=== PATIENT | female | born 1940 | race Caucasian/White ===

== ENCOUNTER 2017-07-08 15:25 | Inpatient (IN) | payer MEDICARE ==
[~2017-07-08] VITALS: Ht 160 cm; Wt 91.7 kg
[~2017-07-08 15:25] MED LIST: B-COTAB41 PO; CALCTAB80 PO; CO Q100C9 PO; CRAN450T PO; CYMB30CA PO; ENOX40P SQ; GABA100C4 PO; GABA300C3 PO; HYDR-2768 PO; IRON325T2 PO; LACTATED RINGER'S 1000 ML INJ 1,000 ML IV ONE; LISI-360 PO; LORTA5 PO; OMEP20CA5 PO; ONDANSETRON HCL 4 MG/2 ML VIAL IV PUSH ONE; PHENYLEPH/NS 1000 MCG/10 ML SYR IV ONE; PROPOFOL 200 MG/20 ML AMP IV ONE; SIMV10TA PO; SYMB160A INH; ULTR50TA PO; VITA10002 PO; Z.0.COMMODE-3:1; Z.0.WALKERFRONT; [UNRECOGNIZED DRUG - OTHER] PO
[2017-07-08 15:27] VITALS: BP 135/58; PULSE 90; RESP 13; TEMP 100.3; O2SAT 97
[2017-07-08] MEDS ORDERED: PIPERACIL-TAZO 4.5 GM PREMIX 100 ML IV STA (15:50)
--- NOTE | 2017-07-08 15:59 | PD ---
HPI Chief Complaint: GI Complaint Time Seen by Provider: 15:50 Travel History International Travel<30 days: No Contact w/Intl Traveler<30days: No Traveled to known affect area: No History of Present Illness HPI 77-year-old female patient with history of ventral hernia from previous surgery , presents to the ER today because of one and half weeks history of lower abdominal pain where she feels a mass, thinks it is a hernia that started after she was lifting heavy stuff. She states is been getting worse and worse and she followed up with her primary care physician, had an ultrasound done on June 30 and then had a CAT scan done today, was told by her primary care physician to come here today. She has been running fevers but denies any nausea , vomiting, or any other symptoms. Modifying Factors: None Associated Signs & Symptoms: Lower abdominal area tenderness, fevers, mass Risk Factors: Elderly PFSH Past Medical History Arthritis: Yes Blood Disorders: No (cll) Depression: Yes Cancer: Yes (SKIN, CLL) Cardiovascular Problems: No High Cholesterol: Yes COPD: Yes Diabetes: No Endocrine: No GERD: Yes Genitourinary: No Hepatitis: No Hiatal Hernia: No Hypertension: Yes Immune Disorder: No Musculoskeletal: Yes (ARTHRITIS, BACK PAIN) Neurologic: No Psychiatric: Yes (DEPRESSION) Reproductive: No Respiratory: Yes (COPD) Thyroid Disease: No Menopausal: Yes Past Surgical History Abdominal Surgery: Yes (PANCREATIC BX) AICD: No Eye Surgery: Yes (HOSSEIN. CATARACT EXTRACT.) Joint Replacement: Yes (LEFT KNEE) Pacemaker: No Other Surgery: Yes (SKIN CA RESECTION) Social History Alcohol Use: Yes (8 drinks per week) Tobacco Use: No Substance Use: No Allergies-Medications (Allergen,Severity, Reaction): Coded Allergies: No Known Allergies (Verified , 10/10/14) Reported Meds & Prescriptions Reported Meds & Active Scripts Active Reported Co Q-10 (Coenzyme Q10 (Ubidecarenone)) 100 Mg Cap 100 Cap PO DAILY Potassium Chloride ER (Potassium Chloride) 10 Meq Cap 10 Meq PO DAILY Melatonin 5 Mg Tab 5 Mg PO HS Aspirin 81 Mg Chew 81 Mg PO ONCE Lasix (Furosemide) 40 Mg Tab 40 Mg PO DAILY Hydrocodone-Acetaminophen 5-325 mg Tab 1 Tab PO Q6H PRN Gabapentin 300 Mg Cap 300 Mg PO BID Claritin (Loratadine) 10 Mg Cap 10 Mg PO DAILY Escitalopram (Escitalopram Oxalate) 5 Mg Tab 5 Mg PO DAILY Duloxetine DR (Duloxetine HCl) 60 Mg Capdr 60 Mg PO DAILY Claritin (Loratadine) 10 Mg Cap 10 Mg PO DAILY Tramadol (Tramadol HCl) 50 Mg Tab 50 Mg PO Q8H PRN Meloxicam 7.5 Mg Tab 7.5 Mg PO DAILY Metoprolol Tartrate 50 Mg Tab 50 Mg PO BID Breo Ellipta Inh (Fluticasone/Vilanterol) 200-25 Mcg/Act Inh 1 Puff INH DAILY Use daily at the same time. Lexapro (Escitalopram Oxalate) 5 Mg Tab 5 Mg PO DAILY Symbicort Inh (Budesonide/Formoterol Fumarate) 160-4.5 Mcg/Act Aero 2 Puff INH Q12HR Cetirizine (Cetirizine HCl) 10 Mg Tab 10 Mg PO DAILY Lisinopril 5 Mg Tab 5 Mg PO DAILY Review of Systems Except as stated in HPI: all other systems reviewed are Neg Physical Exam Narrative GENERAL: Well-developed elderly white female patient currently mild distress. Awake and oriented 3. SKIN: Focused skin assessment warm/dry. HEAD: Atraumatic. Normocephalic. EYES: Pupils equal and round. No scleral icterus. No injection or drainage. ENT: No nasal bleeding or discharge. Mucous membranes pink and moist. NECK: Trachea midline. No JVD. CARDIOVASCULAR: Regular rate and rhythm. No murmur appreciated. RESPIRATORY: No accessory muscle use. Clear to auscultation. Breath sounds equal bilaterally. GASTROINTESTINAL: Abdomen soft, there is a grapefruit size palpable mass in the ventral line in the lower abdomen which is tender to palpation with surrounding erythema, nondistended. Hepatic and splenic margins not palpable. MUSCULOSKELETAL: No obvious deformities. No clubbing. No cyanosis. No edema. NEUROLOGICAL: Awake and alert. No obvious cranial nerve deficits. Motor grossly within normal limits. Normal speech. PSYCHIATRIC: Appropriate mood and affect; insight and judgment normal. Data Data Last Documented VS Vital Signs Date Time Temp Pulse Resp B/P (MAP) Pulse Ox O2 Delivery O2 Flow Rate FiO2 07/08/17 18:20 99.0 89 17 127/66 (86) 96 Room Air Orders Orders Complete Blood Count With Diff (07/08/17 15:50) Comprehensive Metabolic Panel (07/08/17 15:50) Lipase (07/08/17 15:50) Iv Access Insert/Monitor (07/08/17 15:50) Ecg Monitoring (07/08/17 15:50) Oximetry (07/08/17 15:50) Sodium Chloride 0.9% Flush (Ns Flush) (07/08/17 16:00) Lactic Acid Sepsis Protocol (07/08/17 15:50) Blood Culture (07/08/17 15:50) Piperacil-Tazo 4.5 Gm Premix (Zosyn 4.5 (07/08/17 15:50) Consult General Surgery (07/08/17 ) Admit Order (Ed Use Only) (07/08/17 18:21) Labs Laboratory Tests Test 07/08/17 15:59 07/08/17 16:00 Lactic Acid Level 0.7 mmol/L White Blood Count 34.9 TH/MM3 Red Blood Count 3.25 MIL/MM3 Hemoglobin 10.5 GM/DL Hematocrit 32.6 % Mean Corpuscular Volume 100.2 FL Mean Corpuscular Hemoglobin 32.3 PG Mean Corpuscular Hemoglobin Concent 32.2 % Red Cell Distribution Width 15.8 % Platelet Count 258 TH/MM3 Mean Platelet Volume 7.6 FL Neutrophils (%) (Auto) 31.0 % Lymphocytes (%) (Auto) 64.0 % Monocytes (%) (Auto) 4.5 % Eosinophils (%) (Auto) 0.2 % Basophils (%) (Auto) 0.3 % Neutrophils # (Auto) 10.8 TH/MM3 Lymphocytes # (Auto) 22.3 TH/MM3 Monocytes # (Auto) 1.6 TH/MM3 Eosinophils # (Auto) 0.1 TH/MM3 Basophils # (Auto) 0.1 TH/MM3 CBC Comment AUTO DIFF Differential Total Cells Counted 100 Neutrophils % (Manual) 32 % Band Neutrophils % 3 % Lymphocytes % 57 % Monocytes % 6 % Basophils % 2 % Neutrophils # (Manual) 12.2 TH/MM3 Differential Comment FINAL DIFF MANUAL Blastocytes % Smudge Cells PRESENT Platelet Estimate NORMAL Platelet Morphology Comment NORMAL Red Cell Morphology Comment NORMAL Blood Urea Nitrogen 13 MG/DL Creatinine 0.80 MG/DL Random Glucose 119 MG/DL Total Protein 6.2 GM/DL Albumin 2.8 GM/DL Calcium Level 8.1 MG/DL Alkaline Phosphatase 112 U/L Aspartate Amino Transf (AST/SGOT) 9 U/L Alanine Aminotransferase (ALT/SGPT) 15 U/L Total Bilirubin 0.5 MG/DL Sodium Level 133 MEQ/L Potassium Level 3.5 MEQ/L Chloride Level 96 MEQ/L Carbon Dioxide Level 29.6 MEQ/L Anion Gap 7 MEQ/L Estimat Glomerular Filtration Rate 70 ML/MIN Lipase 60 U/L [facility] Medical Decision Making Medical Screen Exam Complete: Yes Emergency Medical Condition: Yes Medical Record Reviewed: Yes Interpretation(s) Laboratory Tests Test 07/08/17 15:59 07/08/17 16:00 White Blood Count 34.9 TH/MM3 (4.0-11.0) Red Blood Count 3.25 MIL/MM3 (4.00-5.30) Hemoglobin 10.5 GM/DL (11.6-15.3) Hematocrit 32.6 % (35.0-46.0) Mean Corpuscular Volume 100.2 FL (80.0-100.0) Lymphocytes (%) (Auto) 64.0 % (9.0-44.0) Neutrophils # (Auto) 10.8 TH/MM3 (1.8-7.7) Lymphocytes # (Auto) 22.3 TH/MM3 (1.0-4.8) Monocytes # (Auto) 1.6 TH/MM3 (0-0.9) Random Glucose 119 MG/DL (74-106) Total Protein 6.2 GM/DL (6.4-8.2) Albumin 2.8 GM/DL (3.4-5.0) Calcium Level 8.1 MG/DL (8.5-10.1) Aspartate Amino Transf (AST/SGOT) 9 U/L (15-37) Sodium Level 133 MEQ/L (136-145) Chloride Level 96 MEQ/L (98-107) Estimat Glomerular Filtration Rate 70 ML/MIN (>89) Lipase 60 U/L (73-393) Differential Diagnosis Incarcerated hernia versus mass versus cellulitis versus abscess Narrative Course CAT scan [place] [facility] from today shows hernia defect containing fat and low-dose density collection containing bubbles of air which implies incarceration with superimposed infection of the hernia contents. On exam, she has abdominal wall cellulitis as well. IV antibiotics were given after cultures were drawn. Lab work shows significant leukocytosis although this may be related to her CLL. She is febrile in the ER. At this point, case was discussed with Dr. Coates who states he will see the patient. Case was then admitted to Dr. Humphrey. Diagnosis Primary Impression: Incarcerated hernia Additional Impression: Abdominal wall cellulitis Admitting Information Admitting Physician Requests: Admit Santhosh Govea MD Jul 08, 2017 15:59
[2017-07-08] MEDS ORDERED: SODIUM CHLORIDE 0.9% FLUSH 10 ML FLUSH IV FLUSH PRN ×2 (16:00→18:30)
[2017-07-08 16:01] VITALS: RESP 18; O2SAT 98
[2017-07-08 16:18] VITALS: BP 125/60; PULSE 89; RESP 18; TEMP 99.4; O2SAT 96
[2017-07-08 16:40] LABS: AUTOMATED NEUTROPHIL # 10.8 TH/MM3 (1.8-7.7); BASOPHIL # 0.1 TH/MM3 (0-0.2); BASOPHIL % 0.3 % (0.0-2.0); EOSINOPHIL # 0.1 TH/MM3 (0-0.4); EOSINOPHIL % 0.2 % (0.0-4.0); HEMATOCRIT 32.6 % (35.0-46.0); LYMPHOCYTE # 22.3 TH/MM3 (1.0-4.8); MEAN CELL VOLUME 100.2 FL (80.0-100.0); MEAN CORPUSCULAR HEMOGLOBIN 32.3 PG (27.0-34.0); MEAN CORPUSCULAR HGB CONC 32.2 % (32.0-36.0); MONO % 4.5 % (0.0-8.0); PLATELET COUNT 258 TH/MM3 (150-450); RED BLOOD COUNT 3.25 MIL/MM3 (4.00-5.30); RED CELL DISTRIBUTION WIDTH 15.8 % (11.6-17.2); WHITE BLOOD COUNT 34.9 TH/MM3 (4.0-11.0)
[2017-07-08 16:43] LABS: HEMO FLAGS AUTO DIFF
[2017-07-08] MEDS ORDERED: DULO1CAP3 PO (16:59)
[2017-07-08] MEDS ORDERED: LEXA5TAB PO (16:59)
[2017-07-08] MEDS ORDERED: GABA300C5 PO (16:59)
[2017-07-08] MEDS ORDERED: MELO7.5T4 PO (16:59)
[2017-07-08] MEDS ORDERED: FLUT1INH7 INH (16:59)
[2017-07-08] MEDS ORDERED: HYDR-3516 PO (16:59)
[2017-07-08] MEDS ORDERED: METO50TA PO (16:59)
[2017-07-08] MEDS ORDERED: POTA10CA PO (16:59)
[2017-07-08] MEDS ORDERED: ESCI5TAB PO (16:59)
[2017-07-08] MEDS ORDERED: TRAM50TA PO (16:59)
[2017-07-08] MEDS ORDERED: COEN1CAP PO (16:59)
[2017-07-08] MEDS ORDERED: CLAR10CA3 PO (16:59)
[2017-07-08] MEDS ORDERED: FURO1TAB60 PO (16:59)
[2017-07-08] MEDS ORDERED: LISI-519 PO (16:59)
[2017-07-08] MEDS ORDERED: SYMB160A INH (16:59)
[2017-07-08] MEDS ORDERED: ASPI81CH PO (16:59)
[2017-07-08] MEDS ORDERED: CETI10 PO (16:59)
[2017-07-08] MEDS ORDERED: MELA5TAB15 PO (16:59)
[2017-07-08 17:01] LABS: ALT (GPT) 15 U/L (10-53); ANION GAP 7 MEQ/L (5-15); AST (GOT) 9 U/L (15-37); BICARBONATE 29.6 MEQ/L (21.0-32.0); BLOOD UREA NITROGEN 13 MG/DL (7-18); CHLORIDE 96 MEQ/L (98-107); GLOMERULAR FILTRATION RATE 70 ML/MIN (>89); POTASSIUM 3.5 MEQ/L (3.5-5.1); SODIUM (NA) 133 MEQ/L (136-145)
[2017-07-08 17:03] LABS: ALKALINE PHOSPHATASE 112 U/L (45-117); TOTAL BILIRUBIN ADULT 0.5 MG/DL (0.2-1.0)
[2017-07-08 17:25] LABS: BANDS 3 % (0-6); BASOPHILS 2 % (0-2); NEUTROPHIL # MANUAL DIFF 12.2 TH/MM3 (1.8-7.7); PLATELET ESTIMATE SMEAR NORMAL (NORMAL); PLATELET MORPHOLOGY NORMAL (NORMAL); POLYS (SEG NEUTROPHILS) 32 % (16-70); SCAN/DIFF FINAL DIFF MANUAL; SMUDGE CELLS PRESENT PRESENT; WBC DIFF SAMPLE 100
[2017-07-08 18:20] VITALS: BP 127/66; PULSE 89; RESP 17; TEMP 99; O2SAT 96
[2017-07-08 18:30] VITALS: O2SAT 93
[2017-07-08] MEDS ORDERED: BISACODYL 10 MG SUPP RECTAL PRN (18:30)
[2017-07-08] MEDS ORDERED: ONDANSETRON HCL 4 MG/2 ML VIAL IVP PRN (18:30)
[2017-07-08] MEDS ORDERED: NALOXONE HCL 0.4 MG/ML AMP IV PUSH PRN (18:30)
[2017-07-08] MEDS ORDERED: LACTULOSE SYRUP 20 GM/30 ML CUP PO PRN (18:30)
[2017-07-08] MEDS ORDERED: MAGNESIUM HYDROXIDE SUSP 30 ML CUP PO PRN (18:30)
[2017-07-08] MEDS ORDERED: SENNOSIDES 8.6 MG TAB PO PRN (18:30)
[2017-07-08] MEDS ORDERED: ACETAMINOPHEN 325 MG TAB PO PRN (18:30)
[2017-07-08] MEDS: SODIUM CHLOR 0.9% 1000 ML INJ 1,000 ML IV SCH (19:26)
[2017-07-08] MEDS: SODIUM CHLORIDE 0.9% FLUSH 10 ML FLUSH IV FLUSH SCH (20:56)
[2017-07-08] MEDS: DOCUSATE SODIUM 50 MG/SENNA 8.6 MG TAB PO SCH (20:56)
[2017-07-08 21:18] VITALS: BP 163/69; PULSE 72; RESP 20
[2017-07-08] MEDS ORDERED: LIDOCAINE HCL 1% 50 ML VIAL ONE (23:43)
[2017-07-08] MEDS ORDERED: BUPIVACAINE HCL PF 0.25% 30 ML VIAL ONE (23:43)
[2017-07-09] MEDS ORDERED: PIPERACIL-TAZO 4.5 GM PREMIX 100 ML IV SCH
[2017-07-09] MEDS ORDERED: SUGAMMADEX SODIUM 200 MG/2 ML VIAL IV PUSH ONE ×4 (00:42→01:13)
[2017-07-09] MEDS ORDERED: ACETAMINOPHEN 1000 MG/100 ML 100 ML IV ONE (00:52)
[2017-07-09] MEDS ORDERED: DO NOT ADM ANY ANTICOAGULANT DRUGS PRN (01:30)
[2017-07-09] MEDS: *morphine SULFATE 8 MG/ML PERIprocedure ONLY ONE ×2 (01:43→01:44)
[2017-07-09] MEDS: SODIUM CHLOR 0.9% 1000 ML INJ 1,000 ML IV SCH (03:39)
[2017-07-09 04:39] VITALS: BP 119/58; PULSE 88; RESP 18; TEMP 98.1; O2SAT 92
--- NOTE | 2017-07-09 05:29 | HHI.HP ---
[facility] Service [place] Primary Care Physician Lee Wilks Admission Diagnosis sepsis/incarcerated hernia/abdominal wall cellulitis Diagnoses: Travel History International Travel<30 Days: No Contact w/Intl Traveler <30 Da: No Traveled to Known Affected Are: No History of Present Illness History from patient, ER physician notes, and review of medical records. Patient reported that she came to the hospital initially because she was having abdominal pain diffusely for the past 1-1/2 weeks. Denies any nausea or vomiting. She reports of fever. Also noted to be coughing. Productive cough but she was not able to expectorate. She states that her abdomen was also feeling swollen and inflamed. Denies any constipation or diarrhea. Denies any black color stool or red color stool. Denies burning or pain on urination or frequent urination. Apart from the above, patient denies any recent chest pain/palpitations/ shortness of breath/focal weakness. Denies any syncopal episodes/dizziness. Review of Systems Except as stated in HPI: all other systems reviewed are Neg Past Family Social History Past Medical History htn copd cll Past Surgical History bilateral knee replacement endoscopic biopsies Allergies: Coded Allergies: No Known Allergies (Verified , 10/10/14) Family History none that she knows of Social History quit smoking 1997 drink about 2 drinks - 3 drinks a day; mixed drink no drugs still driving lives on her own Physical Exam Vital Signs Vital Signs Date Time Temp Pulse Resp B/P (MAP) Pulse Ox O2 Delivery O2 Flow Rate FiO2 07/09/17 04:39 98.1 88 18 119/58 (78) 92 07/09/17 02:00 98.8 89 24 122/56 (78) 93 Nasal Cannula 4 07/09/17 01:45 88 24 111/50 (70) 97 Nasal Cannula 4 07/09/17 01:30 91 22 127/59 (81) 97 Simple Mask 10 07/09/17 01:23 99.2 91 22 118/57 (77) 91 Simple Mask 10 07/08/17 21:18 72 20 163/69 (100) 9/14/17 18:30 93 21 07/08/17 18:20 99.0 89 17 127/66 (86) 96 Room Air 07/08/17 16:18 99.4 89 18 125/60 (81) 96 Room Air 07/08/17 16:02 18 07/08/17 16:01 18 98 Room Air 07/08/17 15:27 100.3 90 13 135/58 (83) 97 Physical Exam GENERAL: This is a well-nourished, well-developed patient, in no apparent distress. SKIN: No rashes, ecchymoses or lesions. Cool and dry. HEAD: Atraumatic. Normocephalic. No temporal or scalp tenderness. EYES:. No scleral icterus. No injection or drainage. ENT: Nose without bleeding, purulent drainage or septal hematoma. Airway patent. NECK: Trachea midline. No JVD CARDIOVASCULAR: Regular rate and rhythm without murmurs, gallops, or rubs. RESPIRATORY: Clear to auscultation. Breath sounds equal bilaterally. No wheezes , rales, or rhonchi. GASTROINTESTINAL: Abdomen soft, non-tender, nondistended.. No guarding. MUSCULOSKELETAL: Extremities without clubbing, cyanosis, or edema. . No calf tenderness. NEUROLOGICAL: Awake and alert.Motor and sensory grossly within normal limits.Normal speech. Laboratory Laboratory Tests Test 07/08/17 15:59 07/08/17 16:00 Lactic Acid Level 0.7 White Blood Count 34.9 Red Blood Count 3.25 Hemoglobin 10.5 Hematocrit 32.6 Mean Corpuscular Volume 100.2 Mean Corpuscular Hemoglobin 32.3 Mean Corpuscular Hemoglobin Concent 32.2 Red Cell Distribution Width 15.8 Platelet Count 258 Mean Platelet Volume 7.6 Neutrophils (%) (Auto) 31.0 Lymphocytes (%) (Auto) 64.0 Monocytes (%) (Auto) 4.5 Eosinophils (%) (Auto) 0.2 Basophils (%) (Auto) 0.3 Neutrophils # (Auto) 10.8 Lymphocytes # (Auto) 22.3 Monocytes # (Auto) 1.6 Eosinophils # (Auto) 0.1 Basophils # (Auto) 0.1 CBC Comment AUTO DIFF Differential Total Cells Counted 100 Neutrophils % (Manual) 32 Band Neutrophils % 3 Lymphocytes % 57 Monocytes % 6 Basophils % 2 Neutrophils # (Manual) 12.2 Differential Comment FINAL DIFF MANUAL Blastocytes Smudge Cells PRESENT Platelet Estimate NORMAL Platelet Morphology Comment NORMAL Red Cell Morphology Comment NORMAL Blood Urea Nitrogen 13 Creatinine 0.80 Random Glucose 119 Total Protein 6.2 Albumin 2.8 Calcium Level 8.1 Alkaline Phosphatase 112 Aspartate Amino Transf (AST/SGOT) 9 Alanine Aminotransferase (ALT/SGPT) 15 Total Bilirubin 0.5 Sodium Level 133 Potassium Level 3.5 Chloride Level 96 Carbon Dioxide Level 29.6 Anion Gap 7 Estimat Glomerular Filtration Rate 70 Lipase 60 Date/Time Source Procedure Growth Status 07/08/17 16:05 Blood Peripheral Aerobic Blood Culture Pending Received 07/08/17 16:05 Blood Peripheral Anaerobic Blood Culture Pending Received Result Diagram: 07/08/17 1600 07/08/17 1600 Caprini VTE Risk Assessment Caprini VTE Risk Assessment: Mod/High Risk (score >= 2) Caprini Risk Assessment Model Point Value = 1 Point Value = 2 Point Value = 3 Point Value = 5 Age 41-60 Minor surgery BMI > 25 kg/m2 Swollen legs Varicose veins or History of unexplained or recurrent spontaneous Oral contraceptives or hormone replacement Sepsis (< 1 month) Serious lung disease, including pneumonia (< 1 month) Abnormal pulmonary function Acute myocardial infarction Congestive heart failure (< 1 month) History of inflammatory bowel disease Medical patient at bed rest Age 61-74 Arthroscopic surgery Major open surgery (> 45 min) Laparoscopic surgery (> 45 min) Malignancy Confined to bed (> 72 hours) Immobilizing plaster cast Central venous access Age >= 75 History of VTE Family history of VTE Factor V Leiden Prothrombin [id number] Lupus anticoagulant Anticardiolipin antibodies Elevated serum homocysteine Heparin-induced thrombocytopenia Other congenital or acquired thrombophilia Stroke (< 1 month) Elective arthroplasty Hip, pelvis, or leg fracture Acute spinal cord injury (< 1 month) Prophylaxis Regimen Total Risk Factor Score Risk Level Prophylaxis Regimen 0-1 Low Early ambulation 2 Moderate Order ONE of the following: *Sequential Compression Device (SCD) *Heparin 5000 units SQ BID 3-4 Higher Order ONE of the following medications: *Heparin 5000 units SQ TID *Enoxaparin/Lovenox 40 mg SQ daily (WT < 150 kg, CrCl > 30 mL/min) *Enoxaparin/Lovenox 30 mg SQ daily (WT < 150 kg, CrCl > 10-29 mL/min) *Enoxaparin/Lovenox 30 mg SQ BID (WT < 150 kg, CrCl > 30 mL/min) AND/OR *Sequential Compression Device (SCD) 5 or more Highest Order ONE of the following medications: *Heparin 5000 units SQ TID (Preferred with Epidurals) *Enoxaparin/Lovenox 40 mg SQ daily (WT < 150 kg, CrCl > 30 mL/min) *Enoxaparin/Lovenox 30 mg SQ daily (WT < 150 kg, CrCl > 10-29 mL/min) *Enoxaparin/Lovenox 30 mg SQ BID (WT < 150 kg, CrCl > 30 mL/min) AND *Sequential Compression Device (SCD) Assessment and Plan Assessment and Plan Impression: Incarcerated hernia Fevers/diaphoresis - rule out bacteremia CLL COPD Plan: Patient was evaluated by general surgery and was taken to the OR overnight. Patient's abdomen and pelvis CTpersonally reviewed. Postoperatively, patient is doing well with the wound VAC. Fever workup. Blood cultures were sent. Pending results. Send UA and urine culture if indicated. Chest x-ray stat. Start patient on levofloxacin 750 mg IV every 24 hours, with Flagyl 500 mg IV every 6 hours. Patient also received Zosyn 4.5 g IV previously in ER. Pain control. Resume home meds DVT prophylaxiswith Lovenox. GI prophylaxis on pantoprazole. Discussed Condition With patient, ER physician, nursing staff Physician Certification 2 Midnight Certification Type: Admission for Inpatient Services Order for Inpatient Services The services are ordered in accordance with Medicare regulations or non- Medicare payer requirements, as applicable. In the case of services not specified as inpatient-only, they are appropriately provided as inpatient services in accordance with the 2-midnight benchmark. Estimated LOS (days): 2 days is the estimated time the patient will need to remain in the hospital, assuming treatment plan goals are met and no additional complications. Post-Hospital Plan: Home Nia Love MD Jul 09, 2017 05:29
[2017-07-09] MEDS: LEVOFLOXACIN 750 MG PREMIX INJ 150 ML IV SCH (06:51)
--- NOTE | 2017-07-09 07:08 | RADRPT ---
EXAM DATE/TIME: 07/09/2017 06:38 [place] COMPARISON: CHEST PA & LAT, September 14, 2014, 11:56. INDICATIONS : Shortness of breath. MEDICAL HISTORY : None. SURGICAL HISTORY : None. ENCOUNTER: Initial ACUITY: 1 day PAIN SCORE: 0/10 LOCATION: chest FINDINGS: A single view of the chest demonstrates the lungs to be symmetrically aerated without evidence of mas s, infiltrate or effusion. The cardiomediastinal contours are unremarkable. Osseous structures are intact. CONCLUSION: No acute disease. Rohan Andrade MD on July 09, 2017 at 7:07 Board Certified Radiologist. This report was verified electronically.
[2017-07-09 08:16] VITALS: BP 124/58; PULSE 74; RESP 18; TEMP 97.3; O2SAT 95
[2017-07-09 09:00] LABS: BLOOD, URINE NEG (NEG); COMMENT (UR) CULT NOT INDICATED; CULTURE IF INDICATED CULT NOT INDICATED; GLUCOSE,URINE NEG (NEG); KETONE, URINE NEG (NEG); MUCUS URINE FEW /lpf (OCC); NITRITE,URINE NEG (NEG); PH, URINE 5.5 (5.0-8.5); SQUAMOUS EPITHELIAL CELL URINE <1 /hpf (0-5); URINE COLOR YELLOW (YELLW/STRAW)
[2017-07-09] MEDS: ESCITALOPRAM OXALATE 10 MG TAB PO SCH (09:39)
[2017-07-09] MEDS: DULoxetine HCl DR 60 MG CAP PO SCH (09:40)
[2017-07-09] MEDS: PANTOPRAZOLE SOD 40 MG DELAYED RELEASE TAB PO SCH (09:40)
[2017-07-09] MEDS: LISINOPRIL 5 MG TAB PO SCH (09:40)
[2017-07-09] MEDS: GABAPENTIN 300 MG CAP PO SCH ×2 (09:40→21:15)
[2017-07-09] MEDS: METOPROLOL TARTRATE 50 MG TAB PO SCH ×2 (09:40→21:16)
[2017-07-09] MEDS: FUROSEMIDE 40 MG TAB PO SCH (09:41)
[2017-07-09] MEDS: BUDESONIDE-FORMOTEROL 160/4.5 MCG INHALER INH SCH ×2 (09:41→21:00)
[2017-07-09] MEDS: metroNIDAZOLE 500 MG INJ 100 ML IV SCH ×3 (09:41→21:16)
[2017-07-09] MEDS: ASPIRIN 81 MG CHEW TAB PO SCH (09:42)
[2017-07-09] MEDS: POTASSIUM CHLORIDE 10 MEQ CAP PO SCH (09:42)
[2017-07-09] MEDS: SODIUM CHLORIDE 0.9% FLUSH 10 ML FLUSH IV FLUSH SCH ×2 (09:42→21:16)
[2017-07-09] MEDS: ENOXAPARIN SODIUM 40 MG/0.4 ML SYRINGE SQ SCH (09:43)
[2017-07-09] MEDS: DOCUSATE SODIUM 50 MG/SENNA 8.6 MG TAB PO SCH ×2 (09:43→21:16)
[2017-07-09 10:20] LABS: AUTOMATED NEUTROPHIL # 11.7 TH/MM3 (1.8-7.7); BASOPHIL % 0.1 % (0.0-2.0); HEMATOCRIT 32.8 % (35.0-46.0); LYMPHOCYTE # 18.5 TH/MM3 (1.0-4.8); MEAN CELL VOLUME 101.2 FL (80.0-100.0); MEAN CORPUSCULAR HEMOGLOBIN 32.3 PG (27.0-34.0); MEAN CORPUSCULAR HGB CONC 31.9 % (32.0-36.0); NEUT % 37.9 % (16.0-70.0); PLATELET COUNT 240 TH/MM3 (150-450); RED BLOOD COUNT 3.24 MIL/MM3 (4.00-5.30); RED CELL DISTRIBUTION WIDTH 15.8 % (11.6-17.2); WHITE BLOOD COUNT 30.8 TH/MM3 (4.0-11.0)
--- NOTE | 2017-07-09 10:21 | MB ---
cc: PATRICIA KELLY M.D. DATE OF CONSULTATION 07/08/2017 REASON FOR CONSULTATION Incarcerated ventral incisional hernia with abscess. BRIEF HISTORY This is a very pleasant 77-year-old woman who back in 1996 underwent exploration for possible pancreatic cancer by Dr. Whitney who is no longer here in town. Went to [place] shortly after her surgery. She did not have pancreatic cancer and recovered well. A few weeks ago, she lifted something heavy and felt a pop and a lump appeared. She did okay with that until over the last couple of days she developed increasing discomfort and erythema. She is followed by Dr. Garcia for CLL and her normal white blood cell count is in the upper 20s to low 30s. She has had no nausea, vomiting, change in bowel or bladder habits. PAST MEDICAL HISTORY Her past medical history includes: 1. Some CHF. 2. She has had a history of depression. 3. Skin cancer 4. High cholesterol 5. COPD, is a former smoker. 6. She has had arthritis. 7. Some gastroesophageal reflux disease PAST SURGICAL HISTORY Previous surgeries include: 1. The pancreatic biopsy. 2. Cataract surgery 3. Left knee surgery 4. Skin cancer excisions MEDICATIONS Her routine medications include: 1. Coenzyme Q-10 2. Potassium 3. Melatonin 4. 81 mg aspirin 5. Lasix 40 mg 6. Hydrocodone 7. Gabapentin 8. Claritin 9. Escitalopram 10. Duloxetine 11. Claritin 12. Tramadol 13. Meloxicam 14. Metoprolol 15. Breo Ellipta inhaler 16. Lexapro 17. Symbicort inhaler 18. Cetirizine 19. Lisinopril SOCIAL HISTORY Her daughter lives here locally, knows what is going on. She does not smoke anymore. She has two alcoholic beverages a day. She denies HIV or hepatitis risk factors. FAMILY HISTORY Her brother of cancer from working in the plants in [place], [place]. Her father of brain cancer. REVIEW OF SYSTEMS She has chronic lung disease. She has some CHF. She gets swollen ankles. She denies known liver or kidney problems. She has no history of strokes or seizures. She has never been treated with blood thinning medications. PHYSICAL EXAM She is an obese woman who is very pleasant and cooperative with the exam. She is in no acute distress. VITAL SIGNS: Her vital signs include a temperature of 99, pulse 89, respiratory rate 17, blood pressure 127/66, O2 sat 93%. HEENT: She is normocephalic, atraumatic. Her pupils are 2, round, sluggishly reactive to light. They are equal. Oropharynx, she has upper and lower partial denture plates. No oral mucosal lesions are obvious. NECK: Her neck is supple without adenopathy. She has midline trachea. No jugular venous distension. LUNGS: Lungs are clear and equal anteriorly bilaterally. HEART: Heart sounds are regular without obvious murmur, rub or gallop. BREASTS, GENITAL AND RECTAL: Exams were deferred. ABDOMEN: Obese. She has upper midline incisional scar that is well-healed. She has an erythematous area with the palpable lump above the umbilicus about 8 cm in diameter. The erythema extends laterally a good 10 cm in either direction. She has no obvious umbilical hernia defect. EXTREMITIES: Her extremities show signs of chronic swelling, chronic sun exposure, she has equal radial pulses. She has strong bilateral nurse orthopedic strength. NEUROLOGIC: Otherwise awake, alert and oriented. LABS Show a white count of 34.9 with 64% lymphs. Her hemoglobin is 10.5, her platelet count is 258. Chemistry showed a potassium of 3.5, creatinine 0.8, glucose 119, albumin of 2.8, lipase is 60. She had outpatient imaging from [place] which showed the inflammation in the supraumbilical position and a likely tiny supraumbilical incisional hernia defect. There is inflammatory changes concerning for abscess. ASSESSMENT This is a 77-year-old woman with a prior history of exploratory lap for presumed pancreatic cancer which was benign in 1996. Three weeks ago she apparently developed a supraumbilical bulge consistent with hernia. The last 48-72 hours it has become erythematous and tender. I have recommended incision and drainage, debridement of the infected area, suture closure of any hernia defect identified and Vac dressing placement. The procedure in detail plus risks of bleeding, infection, recurrence of the hernia expectations for several weeks to several months of wound healing. She understands. She wished to proceed. She has received intravenous antibiotics. MD KIARA Mcgraw/TODD /8:38 PM /10:10 AM
[2017-07-09 10:27] LABS: BICARBONATE 28.2 MEQ/L (21.0-32.0); POTASSIUM 3.6 MEQ/L (3.5-5.1)
[2017-07-09 10:34] LABS: HEMO FLAGS AUTO DIFF
--- NOTE | 2017-07-09 11:39 | HHI.PR ---
Subjective Remarks Follow-up for abdominal wall abscess, repair of incarcerated hernia. Patient is currently doing well. Pain is well controlled, no fever or chills. Daughter is at bedside. Objective Vitals Vital Signs Date Time Temp Pulse Resp B/P (MAP) Pulse Ox O2 Delivery O2 Flow Rate FiO2 07/09/17 08:16 97.3 74 18 124/58 (80) 95 07/09/17 04:39 98.1 88 18 119/58 (78) 92 07/09/17 02:00 98.8 89 24 122/56 (78) 93 Nasal Cannula 4 07/09/17 01:45 88 24 111/50 (70) 97 Nasal Cannula 4 07/09/17 01:30 91 22 127/59 (81) 97 Simple Mask 10 07/09/17 01:23 99.2 91 22 118/57 (77) 91 Simple Mask 10 07/08/17 21:18 72 20 163/69 (100) 07/08/17 18:30 93 21 07/08/17 18:20 99.0 89 17 127/66 (86) 96 Room Air 07/08/17 16:18 99.4 89 18 125/60 (81) 96 Room Air 07/08/17 16:02 18 07/08/17 16:01 18 98 Room Air 07/08/17 15:27 100.3 90 13 135/58 (83) 97 I/O 07/08/17 07/08/17 07/08/17 07/09/17 07/09/17 07/09/17 07:00 15:00 23:00 07:00 15:00 23:00 Intake Total 100 ml 600 ml Output Total 10 ml Balance 100 ml 590 ml Intake Oral 0 ml IV Total 100 ml 600 ml Output Urine Total 0 ml Estimated Blood Loss 10 ml # Voids 2 Result Diagram: 07/09/17 0849 07/09/17 0849 Imaging Last Impressions Chest X-Ray 07/09/17 0000 Signed Impressions: Service Date/Time: Sunday, July 09, 2017 06:38 - CONCLUSION: No acute disease. Rohan Andrade MD Objective Remarks GENERAL: Alert, oriented 3, NAD. SKIN: Warm and dry. HEAD: Normocephalic. EYES: No scleral icterus. No injection or drainage. NECK: Supple, trachea midline. No JVD or lymphadenopathy. CARDIOVASCULAR: Regular rate and rhythm without murmurs, gallops, or rubs. RESPIRATORY: Breath sounds equal bilaterally. No accessory muscle use. GASTROINTESTINAL: Abdomen soft, non-tender, nondistended. Status post surgical intervention. Wound VAC in place. There is mild erythema around the wound VAC insertion site. MUSCULOSKELETAL: No cyanosis, or edema. BACK: Nontender without obvious deformity. No CVA tenderness. Procedures I&D abdominal wall abscess, repair incarcerated hernia, wound VAC placement. A/P Problem List: (1) Hypertension ICD Code: I10 - Essential (primary) hypertension (2) COPD (chronic obstructive pulmonary disease) ICD Code: J44.9 - Chronic obstructive pulmonary disease, unspecified (3) Abdominal wall abscess ICD Code: L02.211 - Cutaneous abscess of abdominal wall (4) Incarcerated hernia ICD Code: K46.0 - Unspecified abdominal hernia with obstruction, without gangrene Status: Acute Assessment and Plan Ms. Lima is a pleasant 77-year-old female who presented to the emergency department due to abdominal pain. Gen. surgery evaluated patient and performed I&D of the abdominal wall abscess as well as repaired incarcerated hernia. - Abdominal wall abscess - Incarcerated abdominal hernia - Continue [place], acetaminophen for pain. - IV Levaquin and Flagyl until we get wound culture results. - Blood cultures negative so far. - General surgery plans to change wound dressing on Wednesday and patient can potentially be discharged afterwards. - COPD - Hypertension - Anxiety/Depression - Continue DuoNeb when necessary, Symbicort, Lexapro, Cymbalta. - Continue metoprolol 50 mg twice a day, lisinopril 5 mg daily. - GERD - continue Protonix 40 mg daily. Full code. Lovenox. Nikki Humphrey DO Jul 09, 2017 11:39 am
--- NOTE | 2017-07-09 11:45 | HHI.PR ---
Subjective Subjective Notes feels better. daughter at bedside. Objective Vitals/I&O Vital Signs Date Time Temp Pulse Resp B/P (MAP) Pulse Ox O2 Delivery O2 Flow Rate FiO2 07/09/17 08:16 97.3 74 18 124/58 (80) 95 07/09/17 02:00 Nasal Cannula 4 07/08/17 18:30 21 Labs Laboratory Tests Test 07/08/17 15:59 07/08/17 16:00 07/09/17 08:35 07/09/17 08:49 Lactic Acid Level 0.7 White Blood Count 34.9 30.8 Red Blood Count 3.25 3.24 Hemoglobin 10.5 10.4 Hematocrit 32.6 32.8 Mean Corpuscular Volume 100.2 101.2 Mean Corpuscular Hemoglobin 32.3 32.3 Mean Corpuscular Hemoglobin Concent 32.2 31.9 Red Cell Distribution Width 15.8 15.8 Platelet Count 258 240 Mean Platelet Volume 7.6 7.6 Neutrophils (%) (Auto) 31.0 37.9 Lymphocytes (%) (Auto) 64.0 60.0 Monocytes (%) (Auto) 4.5 2.0 Eosinophils (%) (Auto) 0.2 0.0 Basophils (%) (Auto) 0.3 0.1 Neutrophils # (Auto) 10.8 11.7 Lymphocytes # (Auto) 22.3 18.5 Monocytes # (Auto) 1.6 0.6 Eosinophils # (Auto) 0.1 0.0 Basophils # (Auto) 0.1 0.0 CBC Comment AUTO DIFF AUTO DIFF Differential Total Cells Counted 100 Neutrophils % (Manual) 32 Band Neutrophils % 3 Lymphocytes % 57 Monocytes % 6 Basophils % 2 Neutrophils # (Manual) 12.2 Differential Comment FINAL DIFF MANUAL Blastocytes Smudge Cells PRESENT Platelet Estimate NORMAL Platelet Morphology Comment NORMAL Red Cell Morphology Comment NORMAL Blood Urea Nitrogen 13 12 Creatinine 0.80 0.69 Random Glucose 119 157 Total Protein 6.2 Albumin 2.8 Calcium Level 8.1 8.1 Alkaline Phosphatase 112 Aspartate Amino Transf (AST/SGOT) 9 Alanine Aminotransferase (ALT/SGPT) 15 Total Bilirubin 0.5 Sodium Level 133 136 Potassium Level 3.5 3.6 Chloride Level 96 97 Carbon Dioxide Level 29.6 28.2 Anion Gap 7 11 Estimat Glomerular Filtration Rate 70 83 Lipase 60 Urine Color YELLOW Urine Turbidity CLEAR Urine pH 5.5 Urine Specific [place] 1.012 Urine Protein NEG Urine Glucose (UA) NEG Urine Ketones NEG Urine Occult Blood NEG Urine Nitrite NEG Urine Bilirubin NEG Urine Urobilinogen LESS THAN 2.0 Urine Leukocyte Esterase NEG Urine WBC LESS THAN 1 Urine Squamous Epithelial Cells <1 Urine Mucus FEW Microscopic Urinalysis Comment CULT NOT INDICATED Date/Time Source Procedure Growth Status 07/08/17 16:05 Blood Peripheral Aerobic Blood Culture - Preliminary NO GROWTH IN 1 DAY Resulted 07/08/17 16:05 Blood Peripheral Anaerobic Blood Culture - Preliminary NO GROWTH IN 1 DAY Resulted 07/09/17 00:45 Abscess Other Gram Stain - Final Resulted 07/09/17 00:45 Abscess Other Wound Culture Pending Resulted Abdomen: Non-distended, Non-tender, Other (VAC intact, erythema decreased.) A/P Assessment and Plan Postop I and D abdominal wall abscess, repair incarcerated hernia, VAC. D/W hospitalist, patient and daughter. Plan first VAC change Wednesday, should have ID on bacteria, can focus antibiotic, arrange for [facility] VAC changes M W F, follow up with me in 2 weeks. Everyone agreed to plan. Regular meds, diet, activity, OK for lovenox. Ned Coates MD Jul 09, 2017 11:45
[2017-07-09 12:16] VITALS: BP 118/59; PULSE 67; RESP 18; TEMP 97.5; O2SAT 95
--- NOTE | 2017-07-09 12:28 | HHI.FF ---
Face to Face Verification Diagnosis: (1) Abdominal wall cellulitis Home Health Nursing Order: Wound care and dressing changes Instructions: Wound Vac change---MWF--- to start Jul 14 as first Wound Vac change I have seen patient Jesi Lima on 07/09/17. My clinical findings support the need for the requested home health care services because: Limited ability to care for self High risk of falls I certify that my clinical findings support that this patient is homebound because: Unsteady gait/balance Padmaja Lema Jul 09, 2017 12:28
[2017-07-09 16:27] VITALS: BP 109/51; PULSE 74; RESP 18; TEMP 97.7; O2SAT 95
[2017-07-09 20:00] VITALS: BP 134/63; PULSE 77; RESP 18; TEMP 97.3; O2SAT 99
[2017-07-09 20:16] LABS: BANDS 4 % (0-6); NEUTROPHIL # MANUAL DIFF 12.9 TH/MM3 (1.8-7.7); POLYS (SEG NEUTROPHILS) 38 % (16-70); WBC DIFF SAMPLE 100
[2017-07-09 20:17] LABS: PLATELET ESTIMATE SMEAR NORMAL (NORMAL); PLATELET MORPHOLOGY NORMAL (NORMAL); SCAN/DIFF FINAL DIFF MANUAL
[2017-07-09] MEDS: MELATONIN 5 MG TAB PO SCH (21:16)
[2017-07-10] VITALS (7 sets, daily range): BP systolic 109–151; BP diastolic 55–67; PULSE 64–80; RESP 17–18; TEMP 97.3–98.5; O2SAT 92–99
[2017-07-10] MEDS: metroNIDAZOLE 500 MG INJ 100 ML IV SCH ×4 (03:32→23:28)
[2017-07-10] MEDS: LEVOFLOXACIN 750 MG PREMIX INJ 150 ML IV SCH (05:00)
--- NOTE | 2017-07-10 09:12 | HHI.PR ---
Subjective Remarks Follow-up for abdominal wall abscess, repair of incarcerated hernia. Patient is doing well. Ambulating using her walker. No fever, chills. Objective Vitals Vital Signs Date Time Temp Pulse Resp B/P (MAP) Pulse Ox O2 Delivery O2 Flow Rate FiO2 07/10/17 08:00 98.5 69 18 138/67 (90) 92 07/10/17 04:00 97.3 64 18 151/64 (93) 95 07/10/17 00:00 97.4 72 18 132/64 (86) 99 07/09/17 20:00 97.3 77 18 134/63 (86) 99 07/09/17 16:27 97.7 74 18 109/51 (70) 95 07/09/17 12:16 97.5 67 18 118/59 (78) 95 I/O 07/09/17 07/09/17 07/09/17 07/10/17 07/10/17 07/10/17 07:00 15:00 23:00 07:00 15:00 23:00 Intake Total 600 ml 100 ml 340 ml 100 ml Output Total 10 ml Balance 590 ml 100 ml 340 ml 100 ml Intake Oral 0 ml 240 ml IV Total 600 ml 100 ml 100 ml 100 ml Output Urine Total 0 ml Estimated Blood Loss 10 ml # Voids 2 4 3 Result Diagram: 07/09/1784807/09/17848 Objective Remarks GENERAL: Alert, oriented 3, NAD. SKIN: Warm and dry. HEAD: Normocephalic. EYES: No scleral icterus. No injection or drainage. NECK: Supple, trachea midline. No JVD or lymphadenopathy. CARDIOVASCULAR: Regular rate and rhythm without murmurs, gallops, or rubs. RESPIRATORY: Breath sounds equal bilaterally. No accessory muscle use. GASTROINTESTINAL: Abdomen soft, non-tender, nondistended. Status post surgical intervention. Wound VAC in place. There is mild erythema around the wound VAC insertion site. MUSCULOSKELETAL: No cyanosis, or edema. BACK: Nontender without obvious deformity. No CVA tenderness. Procedures I&D abdominal wall abscess, repair incarcerated hernia, wound VAC placement. A/P Problem List: (1) Hypertension ICD Code: I10 - Essential (primary) hypertension (2) COPD (chronic obstructive pulmonary disease) ICD Code: J44.9 - Chronic obstructive pulmonary disease, unspecified (3) Abdominal wall abscess ICD Code: L02.211 - Cutaneous abscess of abdominal wall (4) Incarcerated hernia ICD Code: K46.0 - Unspecified abdominal hernia with obstruction, without gangrene Status: Acute Assessment and Plan Ms. Lima is a pleasant 77-year-old female who presented to the emergency department due to abdominal pain. Gen. surgery evaluated patient and performed I&D of the abdominal wall abscess as well as repaired incarcerated hernia. - Abdominal wall abscess - Incarcerated abdominal hernia - Continue [place], acetaminophen for pain. - IV Levaquin and Flagyl until we get wound culture results. - Blood cultures negative so far. Wound culture growing GNR. - General surgery plans to change wound dressing on Wednesday and patient can potentially be discharged afterwards. - COPD - Hypertension - Anxiety/Depression - Continue DuoNeb when necessary, Symbicort, Lexapro, Cymbalta. - Continue metoprolol 50 mg twice a day, lisinopril 5 mg daily. - GERD - continue Protonix 40 mg daily. Full code. Lovenox. Nikki Humphrey DO Jul 10, 2017 09:12
[2017-07-10] MEDS: DULoxetine HCl DR 60 MG CAP PO SCH (09:13)
[2017-07-10] MEDS: METOPROLOL TARTRATE 50 MG TAB PO SCH ×2 (09:13→23:08)
[2017-07-10] MEDS: PANTOPRAZOLE SOD 40 MG DELAYED RELEASE TAB PO SCH (09:13)
[2017-07-10] MEDS: GABAPENTIN 300 MG CAP PO SCH ×2 (09:14→23:08)
[2017-07-10] MEDS: LISINOPRIL 5 MG TAB PO SCH (09:14)
[2017-07-10] MEDS: ASPIRIN 81 MG CHEW TAB PO SCH (09:14)
[2017-07-10] MEDS: FUROSEMIDE 40 MG TAB PO SCH (09:14)
[2017-07-10] MEDS: ESCITALOPRAM OXALATE 10 MG TAB PO SCH (09:14)
[2017-07-10] MEDS: DOCUSATE SODIUM 50 MG/SENNA 8.6 MG TAB PO SCH ×2 (09:14→21:00)
[2017-07-10] MEDS: POTASSIUM CHLORIDE 10 MEQ CAP PO SCH (09:14)
[2017-07-10] MEDS: ENOXAPARIN SODIUM 40 MG/0.4 ML SYRINGE SQ SCH (09:15)
[2017-07-10] MEDS: SODIUM CHLORIDE 0.9% FLUSH 10 ML FLUSH IV FLUSH SCH ×2 (09:16→23:11)
[2017-07-10] MEDS: BUDESONIDE-FORMOTEROL 160/4.5 MCG INHALER INH SCH ×2 (09:16→23:11)
[2017-07-10] MEDS: MELATONIN 5 MG TAB PO SCH (23:08)
[2017-07-10] MEDS: ACETAMINOPHEN/HYDROcodone 325 MG/5 MG TAB PO PRN (23:08)
[2017-07-11] MEDS: metroNIDAZOLE 500 MG INJ 100 ML IV SCH ×3 (02:36→21:52)
[2017-07-11 04:05] VITALS: BP 137/63; PULSE 69; RESP 17; TEMP 98.2; O2SAT 95
[2017-07-11] MEDS: LEVOFLOXACIN 750 MG PREMIX INJ 150 ML IV SCH (05:25)
--- NOTE | 2017-07-11 07:54 | MP ---
cc: PATRICIA KELLY M.D. DATE OF SURGERY: 07/09/2017 PREOPERATIVE DIAGNOSIS: Infected incarcerated ventral incisional hernia. POSTOPERATIVE DIAGNOSIS Infected incarcerated ventral incisional hernia. PROCEDURE Incision and drainage of abscess with operative suture repair of ventral incisional hernia and Vac dressing placement. SURGEON Dr. Patricia Kelly ANESTHESIA General endotracheal tube INDICATIONS This patient is a 77-year-old woman with a previous history of pancreatic surgery and it ultimately ended up being benign. Just about 3 weeks ago she heard something pop, developed a bulge in the supraumbilical position. Over the last 2-3 days developed erythema and warmth. CT shows findings consistent with abscess. INTRAOPERATIVE FINDINGS: Infected fluid sent for Gram stain, culture and sensitivity. Wound and size drained, irrigated, debrided. Small incarcerated fat excised and sent to pathology. Small hernia defect primarily repaired with suture. Small sponge placed. ESTIMATED BLOOD LOSS: Less than 25 mL DESCRIPTION OF PROCEDURE IN DETAIL The patient identified as Jesi Lima, taken to the operating room, placed in the supine position. Sequential compression devices placed on bilateral lower extremities. Following induction of adequate general anesthesia the patient's abdomen was prepped and draped in usual sterile fashion with Betadine. A time-out procedure was performed. Following completion of time-out procedure to everyone's satisfaction within the room, supraumbilical incision was carried out with scalpel and hemostasis controlled with electrocautery. The abscess cavity was entered and malodorous purulent fluid was drained and suctioned out. Fluid was sent for Gram stain culture and sensitivity. The wound was opened in its entirety completely suctioned out. Incarcerated fat was identified and was from surrounding tissues to the level of there hernia defeft. The redundant tissue was amputated and sent to pathology. The hernia defect was opened. Small amount of bleeding was encountered and controlled with electrocautery. The fascial defect was then approximated with multiple interrupted zero Prolene sutures. The wound was irrigated copiously with saline. Necrotic tissue was debrided. Once the wound was assured to be clean and hemostatic, a small Vac sponge was placed within the wound and a dressing placed in a standard Vac fashion. It was connected to the suction cannister without evidence of leak. The patient tolerated the procedure well, without apparent complication. Sponge, needle and instrument counts were correct at the end of the case. MD KIARA Mcgraw/MIGUEL ÁNGEL /1:09 AM /7:36 AM
[2017-07-11 08:07] VITALS: BP 136/68; PULSE 68; RESP 18; TEMP 97.7; O2SAT 97
[2017-07-11] MEDS: SODIUM CHLORIDE 0.9% FLUSH 10 ML FLUSH IV FLUSH SCH ×3 (09:00→21:53)
[2017-07-11] MEDS: DOCUSATE SODIUM 50 MG/SENNA 8.6 MG TAB PO SCH ×2 (09:00→21:00)
[2017-07-11] MEDS: ENOXAPARIN SODIUM 40 MG/0.4 ML SYRINGE SQ SCH ×3 (09:07→09:40)
[2017-07-11] MEDS: ASPIRIN 81 MG CHEW TAB PO SCH (09:09)
[2017-07-11] MEDS: ESCITALOPRAM OXALATE 10 MG TAB PO SCH (09:12)
[2017-07-11] MEDS: LISINOPRIL 5 MG TAB PO SCH (09:16)
[2017-07-11] MEDS: GABAPENTIN 300 MG CAP PO SCH ×2 (09:17→21:51)
[2017-07-11] MEDS: METOPROLOL TARTRATE 50 MG TAB PO SCH ×2 (09:17→21:51)
[2017-07-11] MEDS: FUROSEMIDE 40 MG TAB PO SCH (09:17)
[2017-07-11] MEDS: PANTOPRAZOLE SOD 40 MG DELAYED RELEASE TAB PO SCH (09:17)
[2017-07-11 09:25] VITALS: O2SAT 97
[2017-07-11] MEDS: POTASSIUM CHLORIDE 10 MEQ CAP PO SCH (09:42)
[2017-07-11] MEDS: DULoxetine HCl DR 60 MG CAP PO SCH (09:42)
[2017-07-11] MEDS: BUDESONIDE-FORMOTEROL 160/4.5 MCG INHALER INH SCH ×2 (09:42→21:53)
[2017-07-11 11:09] LABS: AUTOMATED NEUTROPHIL # 6.6 TH/MM3 (1.8-7.7); BASOPHIL # 0.1 TH/MM3 (0-0.2); BASOPHIL % 0.3 % (0.0-2.0); EOSINOPHIL # 0.2 TH/MM3 (0-0.4); EOSINOPHIL % 0.6 % (0.0-4.0); HEMATOCRIT 36.2 % (35.0-46.0); LYMPH % 73.9 % (9.0-44.0); LYMPHOCYTE # 21.6 TH/MM3 (1.0-4.8); MEAN CELL VOLUME 101.7 FL (80.0-100.0); MEAN CORPUSCULAR HEMOGLOBIN 32.2 PG (27.0-34.0); MEAN CORPUSCULAR HGB CONC 31.6 % (32.0-36.0); MONO % 2.7 % (0.0-8.0); NEUT % 22.5 % (16.0-70.0); PLATELET COUNT 278 TH/MM3 (150-450); RED BLOOD COUNT 3.56 MIL/MM3 (4.00-5.30); RED CELL DISTRIBUTION WIDTH 15.2 % (11.6-17.2); WHITE BLOOD COUNT 29.3 TH/MM3 (4.0-11.0)
[2017-07-11 11:15] LABS: HEMO FLAGS AUTO DIFF
[2017-07-11 11:43] LABS: BICARBONATE 29.1 MEQ/L (21.0-32.0); POTASSIUM 3.3 MEQ/L (3.5-5.1)
[2017-07-11 11:56] LABS: BASOPHILS 1 % (0-2); PLATELET ESTIMATE SMEAR NORMAL (NORMAL); POLYS (SEG NEUTROPHILS) 24 % (16-70); WBC DIFF SAMPLE 100
[2017-07-11 11:57] LABS: PLATELET MORPHOLOGY NORMAL (NORMAL); SCAN/DIFF FINAL DIFF MANUAL
[2017-07-11 12:47] VITALS: BP 115/57; PULSE 77; RESP 18; TEMP 97; O2SAT 93
[2017-07-11 16:00] VITALS: BP 130/60; RESP 16; TEMP 98.1; O2SAT 94
[2017-07-11 21:15] VITALS: BP 159/69; PULSE 77; RESP 20; TEMP 98.3; O2SAT 94
[2017-07-11] MEDS: MELATONIN 5 MG TAB PO SCH (21:51)
--- NOTE | 2017-07-11 22:34 | HHI.PR ---
Subjective Remarks Follow-up for abdominal wall abscess, repair of incarcerated hernia. Patient was seen around 4:00PM. Patient is doing well. Ambulating well. No fever, chills. Objective Vitals Vital Signs Date Time Temp Pulse Resp B/P (MAP) Pulse Ox O2 Delivery O2 Flow Rate FiO2 07/11/17 21:15 98.3 77 20 159/69 (99) 94 07/11/17 16:00 98.1 16 130/60 (83) 94 07/11/17 12:47 97.0 77 18 115/57 (76) 93 07/11/17 09:25 97 07/11/17 08:07 97.7 68 18 136/68 (90) 97 07/11/17 04:05 98.2 69 17 137/63 (87) 95 I/O 07/10/17 07/10/17 07/10/17 07/11/17 07/11/17 07/11/17 07:00 15:00 23:00 07:00 15:00 23:00 Intake Total 100 ml 564 ml 360 ml 240 ml 100 ml Balance 100 ml 564 ml 360 ml 240 ml 100 ml Intake Oral 360 ml 240 ml IV Total 100 ml 564 ml 100 ml # Voids 3 4 2 # Bowel Movements 1 Result Diagram: 07/11/17 1053 07/11/17 1053 Imaging Last Impressions Chest X-Ray 07/09/17 0000 Signed Impressions: Service Date/Time: Sunday, July 09, 2017 06:38 - CONCLUSION: No acute disease. Rohan Andrade MD Objective Remarks GENERAL: Alert, oriented 3, NAD. SKIN: Warm and dry. HEAD: Normocephalic. EYES: No scleral icterus. No injection or drainage. NECK: Supple, trachea midline. No JVD or lymphadenopathy. CARDIOVASCULAR: Regular rate and rhythm without murmurs, gallops, or rubs. RESPIRATORY: Breath sounds equal bilaterally. No accessory muscle use. GASTROINTESTINAL: Abdomen soft, non-tender, nondistended. Status post surgical intervention. Wound VAC in place. There is mild erythema around the wound VAC insertion site. MUSCULOSKELETAL: No cyanosis, or edema. BACK: Nontender without obvious deformity. No CVA tenderness. Procedures I&D abdominal wall abscess, repair incarcerated hernia, wound VAC placement. A/P Problem List: (1) Hypertension ICD Code: I10 - Essential (primary) hypertension (2) COPD (chronic obstructive pulmonary disease) ICD Code: J44.9 - Chronic obstructive pulmonary disease, unspecified (3) Abdominal wall abscess ICD Code: L02.211 - Cutaneous abscess of abdominal wall (4) Incarcerated hernia ICD Code: K46.0 - Unspecified abdominal hernia with obstruction, without gangrene Status: Acute Assessment and Plan Ms. Lima is a pleasant 77-year-old female who presented to the emergency department due to abdominal pain. Gen. surgery evaluated patient and performed I&D of the abdominal wall abscess as well as repaired incarcerated hernia. - Abdominal wall abscess - Incarcerated abdominal hernia - Continue [place], acetaminophen for pain. - Culture result shows E. Coli resistant to Levaquin. We'll switch to Bactrim PO and switch IV Flagyl to PO. - Blood cultures negative so far. Wound culture growing GNR. - General surgery plans to change wound dressing on Wednesday and patient can potentially be discharged afterwards. - COPD - Hypertension - Anxiety/Depression - Continue DuoNeb when necessary, Symbicort, Lexapro, Cymbalta. - Continue metoprolol 50 mg twice a day, lisinopril 5 mg daily. - GERD - continue Protonix 40 mg daily. Full code. Lovenox. Discharge: If wound vac is arranged, patient can be discharged on 07/12/2017 on PO abx. Nikki Humphrey DO Jul 11, 2017 22:34
[2017-07-12 01:01] VITALS: BP 126/63; PULSE 71; RESP 20; TEMP 98; O2SAT 93
[2017-07-12 04:57] VITALS: BP 125/69; PULSE 75; RESP 20; TEMP 97.4; O2SAT 93
[2017-07-12] MEDS: metroNIDAZOLE 500 MG TAB PO SCH ×2 (05:41→15:58)
[2017-07-12 08:00] VITALS: BP 142/67; PULSE 75; RESP 18; TEMP 97.4; O2SAT 94
[2017-07-12] MEDS: ENOXAPARIN SODIUM 40 MG/0.4 ML SYRINGE SQ SCH (08:57)
[2017-07-12] MEDS: DOCUSATE SODIUM 50 MG/SENNA 8.6 MG TAB PO SCH (09:00)
[2017-07-12] MEDS ORDERED: SULFAMETHOXAZOLE-TRIMETHOPRIM DS 800-160 MG TAB PO SCH (09:00)
[2017-07-12] MEDS: POTASSIUM CHLORIDE 10 MEQ CAP PO SCH (09:00)
[2017-07-12] MEDS: PANTOPRAZOLE SOD 40 MG DELAYED RELEASE TAB PO SCH (09:01)
[2017-07-12] MEDS: LISINOPRIL 5 MG TAB PO SCH (09:01)
[2017-07-12] MEDS: METOPROLOL TARTRATE 50 MG TAB PO SCH (09:01)
[2017-07-12] MEDS: ASPIRIN 81 MG CHEW TAB PO SCH (09:01)
[2017-07-12] MEDS: GABAPENTIN 300 MG CAP PO SCH (09:02)
[2017-07-12] MEDS: DULoxetine HCl DR 60 MG CAP PO SCH (09:02)
[2017-07-12] MEDS: ESCITALOPRAM OXALATE 10 MG TAB PO SCH (09:02)
[2017-07-12] MEDS: SODIUM CHLORIDE 0.9% FLUSH 10 ML FLUSH IV FLUSH SCH (09:03)
[2017-07-12] MEDS: FUROSEMIDE 40 MG TAB PO SCH (09:03)
[2017-07-12] MEDS: BUDESONIDE-FORMOTEROL 160/4.5 MCG INHALER INH SCH (09:03)
[2017-07-12 10:13] LABS: AUTOMATED NEUTROPHIL # 5.7 TH/MM3 (1.8-7.7); BASOPHIL # 0.1 TH/MM3 (0-0.2); BASOPHIL % 0.3 % (0.0-2.0); EOSINOPHIL # 0.2 TH/MM3 (0-0.4); EOSINOPHIL % 0.6 % (0.0-4.0); LYMPH % 74.7 % (9.0-44.0); LYMPHOCYTE # 19.2 TH/MM3 (1.0-4.8); MEAN CELL VOLUME 101.2 FL (80.0-100.0); MEAN CORPUSCULAR HEMOGLOBIN 32.2 PG (27.0-34.0); MEAN CORPUSCULAR HGB CONC 31.8 % (32.0-36.0); MONO % 2.4 % (0.0-8.0); PLATELET COUNT 265 TH/MM3 (150-450); RED BLOOD COUNT 3.56 MIL/MM3 (4.00-5.30); RED CELL DISTRIBUTION WIDTH 15.4 % (11.6-17.2); WHITE BLOOD COUNT 25.8 TH/MM3 (4.0-11.0)
[2017-07-12 10:16] LABS: HEMO FLAGS AUTO DIFF
[2017-07-12] MEDS ORDERED: HYDR-3516 PO (10:36)
[2017-07-12] MEDS ORDERED: SULF1TAB23 PO (10:36)
[2017-07-12] MEDS ORDERED: METR-1 PO (10:36)
--- NOTE | 2017-07-12 10:40 | HHI.DS ---
Discharge Summary Admission Date Jul 08, 2017 at 18:23 Discharge Date: Jul 12, 2017 Admitting Diagnosis sepsis/incarcerated hernia/abdominal wall cellulitis (1) Hypertension ICD Code: I10 - Essential (primary) hypertension (2) COPD (chronic obstructive pulmonary disease) ICD Code: J44.9 - Chronic obstructive pulmonary disease, unspecified (3) Abdominal wall abscess ICD Code: L02.211 - Cutaneous abscess of abdominal wall (4) Incarcerated hernia ICD Code: K46.0 - Unspecified abdominal hernia with obstruction, without gangrene Status: Acute Procedures I&D abdominal wall abscess, repair incarcerated hernia, wound VAC placement. Brief History - From Admission History from patient, ER physician notes, and review of medical records. Patient reported that she came to the hospital initially because she was having abdominal pain diffusely for the past 1-1/2 weeks. Denies any nausea or vomiting. She reports of fever. Also noted to be coughing. Productive cough but she was not able to expectorate. She states that her abdomen was also feeling swollen and inflamed. Denies any constipation or diarrhea. Denies any black color stool or red color stool. Denies burning or pain on urination or frequent urination. Apart from the above, patient denies any recent chest pain/palpitations/ shortness of breath/focal weakness. Denies any syncopal episodes/dizziness. CBC/BMP: 07/12/17 0952 07/11/17 1053 Significant Findings Laboratory Tests Test 07/11/17 10:53 07/12/17 09:52 White Blood Count 29.3 TH/MM3 (4.0-11.0) 25.8 TH/MM3 (4.0-11.0) Red Blood Count 3.56 MIL/MM3 (4.00-5.30) 3.56 MIL/MM3 (4.00-5.30) Hemoglobin 11.4 GM/DL (11.6-15.3) 11.5 GM/DL (11.6-15.3) Mean Corpuscular Volume 101.7 FL (80.0-100.0) 101.2 FL (80.0-100.0) Mean Corpuscular Hemoglobin Concent 31.6 % (32.0-36.0) 31.8 % (32.0-36.0) Lymphocytes (%) (Auto) 73.9 % (9.0-44.0) 74.7 % (9.0-44.0) Lymphocytes # (Auto) 21.6 TH/MM3 (1.0-4.8) 19.2 TH/MM3 (1.0-4.8) Lymphocytes % 73 % (9-44) Random Glucose 108 MG/DL (74-106) Potassium Level 3.3 MEQ/L (3.5-5.1) Estimat Glomerular Filtration Rate 55 ML/MIN (>89) Imaging Last Impressions Chest X-Ray 07/09/17 0000 Signed Impressions: Service Date/Time: Wednesday, July 09, 2017 06:38 - CONCLUSION: No acute disease. Rohan Andrade MD PE at Discharge GENERAL: Alert, oriented 3, NAD. SKIN: Warm and dry. HEAD: Normocephalic. EYES: No scleral icterus. No injection or drainage. NECK: Supple, trachea midline. No JVD or lymphadenopathy. CARDIOVASCULAR: Regular rate and rhythm without murmurs, gallops, or rubs. RESPIRATORY: Breath sounds equal bilaterally. No accessory muscle use. GASTROINTESTINAL: Abdomen soft, non-tender, nondistended. Status post surgical intervention. Wound VAC in place. There is mild erythema around the wound VAC insertion site. MUSCULOSKELETAL: No cyanosis, or edema. BACK: Nontender without obvious deformity. No CVA tenderness. Pt update on day of discharge Patient is doing well. Ambulating well. No fever, chills. Wound vac changes today. Per CM, wound vac will be delivered today - if it is arranged, patient will be discharged home today 07/12/2017. Hospital Course Ms. Lima is a pleasant 77-year-old female who presented to the emergency department due to abdominal pain. Gen. surgery evaluated patient and performed I&D of the abdominal wall abscess as well as repaired incarcerated hernia. - Abdominal wall abscess - Incarcerated abdominal hernia - Continue [place], acetaminophen for pain. - Culture result shows E. Coli resistant to Levaquin. We switched abx to Bactrim PO and switch IV Flagyl to PO. - Blood cultures negative so far. Wound culture growing GNR. - COPD - Hypertension - Anxiety/Depression - Continue DuoNeb when necessary, Symbicort, Lexapro, Cymbalta. - Continue metoprolol 50 mg twice a day, lisinopril 5 mg daily. - GERD - continue Protonix 40 mg daily. Pt Condition on Discharge: Good Discharge Disposition: Disch w/ Home Health Serv Discharge Time: > 30 minutes Discharge Instructions DIET: Follow Instructions for: As Tolerated, No Restrictions Activities you can perform: Regular-No Restrictions Follow up Referrals: PCP Follow-up - 1 Week Surgical - 1 Week with Ned Coates MD New Medications: Metronidazole (Flagyl) 500 Mg Tab 500 MG PO Q8HR for Infection, #30 TAB Sulfamethoxazole-Trimethoprim (Sulfamethoxazole-Trimethoprim) 800-160 Mg Tab 1 TAB PO Q12HR for Infection, #20 TAB Continued Medications: Aspirin (Aspirin) 81 Mg Chew 81 MG PO ONCE, #1 TAB 0 Refills Budesonide-Formoterol Inh (Symbicort Inh) 160-4.5 Mcg/Act Aero 2 PUFF INH Q12HR, #1 INHALER 0 Refills Cetirizine (Cetirizine) 10 Mg Tab 10 MG PO DAILY for Allergies, TAB 0 Refills Coenzyme Q10 (Ubidecarenone) (Co Q-10) 100 Mg Cap 100 CAP PO DAILY Duloxetine DR (Duloxetine DR) 60 Mg Capdr 60 MG PO DAILY, #30 CAP 0 Refills Escitalopram (Lexapro) 5 Mg Tab 5 MG PO DAILY, #30 TAB 0 Refills Furosemide (Lasix) 40 Mg Tab 40 MG PO DAILY, #30 TAB 0 Refills Gabapentin (Gabapentin) 300 Mg Cap 300 MG PO BID, #60 CAP 0 Refills Hydrocodone-Acetaminophen (Hydrocodone-Acetaminophen) 5-325 mg Tab 1 TAB PO Q6H PRN for PAIN, #20 TAB 0 Refills (This prescription has been renewed ) Lisinopril (Lisinopril) 5 Mg Tab 5 MG PO DAILY for Blood Pressure Management, #30 TAB 0 Refills Melatonin (Melatonin) 5 Mg Tab 5 MG PO HS for Provide Good Sleep, TAB 0 Refills Meloxicam (Meloxicam) 7.5 Mg Tab 7.5 MG PO DAILY for Arthritis Pain, TAB 0 Refills Metoprolol Tartrate (Metoprolol Tartrate) 50 Mg Tab 50 MG PO BID, #60 TAB 0 Refills Potassium Chloride ER (Potassium Chloride ER) 10 Meq Cap 10 MEQ PO DAILY for Electrolyte Replacement, #30 CAP 0 Refills Discontinued Medications: Escitalopram (Escitalopram) 5 Mg Tab 5 MG PO DAILY, #30 TAB 0 Refills Fluticasone-Vilanterol Inh (Breo Ellipta Inh) 200-25 Mcg/Act Inh 1 PUFF INH DAILY, #1 INHALER 0 Refills Use daily at the same time. Loratadine (Claritin) 10 Mg Cap 10 MG PO DAILY for Allergy Management, CAP 0 Refills Loratadine (Claritin) 10 Mg Cap 10 MG PO DAILY for Allergy Management, CAP 0 Refills Tramadol (Tramadol) 50 Mg Tab 50 MG PO Q8H PRN for PAIN, TAB 0 Refills Nikki Humphrey DO Jul 12, 2017 10:40
[2017-07-12] MEDS ORDERED: POTA10CA PO (10:42)
[2017-07-12 11:40] LABS: BANDS 1 % (0-6); NEUTROPHIL # MANUAL DIFF 2.6 TH/MM3 (1.8-7.7); POLYS (SEG NEUTROPHILS) 9 % (16-70); WBC DIFF SAMPLE 100
[2017-07-12 11:41] LABS: SMUDGE CELLS PRESENT PRESENT
[2017-07-12 11:46] LABS: SCAN/DIFF FINAL DIFF MANUAL
[2017-07-12 12:00] VITALS: BP 129/80; PULSE 77; RESP 18; TEMP 97.7; O2SAT 92
[2017-07-12 16:00] VITALS: BP 134/65; PULSE 77; RESP 18; TEMP 97.8; O2SAT 93
[2017-07-12] MEDS: ACETAMINOPHEN/HYDROcodone 325 MG/5 MG TAB PO PRN (17:19)
== END 2017-07-12 17:57 | disposition home health service (06) | DRG 354 ==
LOC: NEPE 15:25 → NEDA 18:23 → N05B 22:45
PROVIDERS: ADMIT Hospitalist; ATTEND Hospitalist
PROC: 0WQF0ZZ Repair Abdominal Wall, Open Approach (ICD-10-PCS; principal; 2017-07-09)
PROC: 0JD80ZZ Extraction of Abdomen Subcutaneous Tissue and Fascia, Open Approach (ICD-10-PCS; 2017-07-09)
DX: K43.0 Incisional hernia with obstruction, without gangrene (principal); C91.10 Chronic lymphocytic leukemia of B-cell type not having achieved remission; L02.211 Cutaneous abscess of abdominal wall; I50.9 Heart failure, unspecified; I11.0 Hypertensive heart disease with heart failure; J44.9 Chronic obstructive pulmonary disease, unspecified; B96.20 Unspecified Escherichia coli [E. coli] as the cause of diseases classified elsewhere; M19.90 Unspecified osteoarthritis, unspecified site; E78.00 Pure hypercholesterolemia, unspecified; K21.9 Gastro-esophageal reflux disease without esophagitis; F32.9 Major depressive disorder, single episode, unspecified; Z85.828 Personal history of other malignant neoplasm of skin; Z87.891 Personal history of nicotine dependence; Z96.653 Presence of artificial knee joint, bilateral
CPT/HCPCS: 71010; 76937; 80048; 80053; 81001; 83605; 83690; 85007; 85027; 87040; 87070; 87077; 87185; 87186; 87205; 88302; 96365; J0131; J1650; J1956; J2270; J2370; J2405; J2543; J3010; J7030; J7120

== ENCOUNTER 2017-07-27 19:06 | Emergency (ER) | payer MEDICARE ==
[~2017-07-27] VITALS: Ht 160 cm; Wt 82.0 kg
[~2017-07-27 19:06] MED LIST changes: +ASPI81CH PO; -B-COTAB41 PO; -CALCTAB80 PO; +CETI10 PO; -CO Q100C9 PO; +COEN1CAP PO; -CRAN450T PO; -CYMB30CA PO; +DULO1CAP3 PO; -ENOX40P SQ; +FURO1TAB60 PO; -GABA100C4 PO; -GABA300C3 PO; +GABA300C5 PO; -HYDR-2768 PO; +HYDR-3516 PO; -IRON325T2 PO; -LACTATED RINGER'S 1000 ML INJ 1,000 ML IV ONE; +LEXA5TAB PO; -LISI-360 PO; +LISI-519 PO; -LORTA5 PO; +MELA5TAB15 PO; +MELO7.5T4 PO; +METO50TA PO; +METR-1 PO; -OMEP20CA5 PO; -ONDANSETRON HCL 4 MG/2 ML VIAL IV PUSH ONE; -PHENYLEPH/NS 1000 MCG/10 ML SYR IV ONE; +POTA10CA PO; -PROPOFOL 200 MG/20 ML AMP IV ONE; -SIMV10TA PO; +SULF1TAB23 PO; -ULTR50TA PO; -VITA10002 PO; -Z.0.COMMODE-3:1; -Z.0.WALKERFRONT; -[UNRECOGNIZED DRUG - OTHER] PO
[2017-07-27 19:28] VITALS: BP 130/60; PULSE 82; RESP 15; TEMP 98.5; O2SAT 92
[2017-07-27] MEDS ORDERED: TETANUS/DIPHTHERIA TOXOID ADULT 0.5 ML VIAL IM ONE (19:30)
[2017-07-27] MEDS ORDERED: ACETAMINOPHEN/HYDROcodone 325 MG/5 MG TAB PO ONE (19:30)
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
== END 2017-07-27 22:52 | disposition home or self-care (01) ==
LOC: NEPC 19:06
DX: S00.83XA Contusion of other part of head, initial encounter (principal); S50.312A Abrasion of left elbow, initial encounter; V00.831A Fall from motorized mobility scooter, initial encounter; Y93.K1 Activity, walking an animal; Y92.008 Other place in unspecified non-institutional (private) residence as the place of occurrence of the external cause
CPT/HCPCS: 70450; 90471

== ENCOUNTER 2017-10-14 11:43 | Inpatient (IN) | payer MEDICARE ==
[~2017-10-14] VITALS: Ht 160 cm; Wt 90.6 kg
[~2017-10-14 11:43] MED LIST changes: -ASPI81CH PO; +MELA5 PO; -MELA5TAB15 PO; +MELO7.5T27 PO; -MELO7.5T4 PO; -METR-1 PO; -SULF1TAB23 PO
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
[2017-10-14] MEDS ORDERED: ONDANSETRON HCL 4 MG/2 ML VIAL IV PUSH ONE (12:15)
[2017-10-14] MEDS ORDERED: MORPHINE SULFATE 2 MG/ML INJ IV PUSH ONE ×2 (12:15→13:45)
[2017-10-14] MEDS ORDERED: NEXI20CA PO (12:25)
[2017-10-14] MEDS ORDERED: MONT10TA4 PO (12:25)
[2017-10-14] MEDS ORDERED: ASPI1TAB57 PO (12:25)
--- NOTE | 2017-10-14 13:02 | RADRPT ---
EXAM DATE/TIME: 10/14/2017 12:31 [facility] COMPARISON: No previous studies available for comparison. INDICATIONS : Lrft wrist pain due to fall. MEDICAL HISTORY : Cardiovascular disease. Chronic obstructive pulmonary disease. Skin cancer. SURGICAL HISTORY : None. ENCOUNTER: Initial ACUITY: 1 day PAIN SCORE: 10/10 LOCATION: Left Wrist. FINDINGS: The intra-articular fracture of the distal radius with some foreshortening and displacement laterally . No ulnar fracture identified. No dislocation. CONCLUSION: 1. Intra-articular fracture distal radius with displacement. Jordan Doherty MD on October 14, 2017 at 12:58 Board Certified Radiologist. This report was verified electronically.
--- NOTE | 2017-10-14 13:03 | RADRPT ---
EXAM DATE/TIME: 10/14/2017 12:39 [facility] COMPARISON: No previous studies available for comparison. INDICATIONS : Left elbow pain due to fall. MEDICAL HISTORY : Cardiovascular disease. Chronic obstructive pulmonary disease. Skin cancer. SURGICAL HISTORY : None. ENCOUNTER: Initial ACUITY: 1 day PAIN SCORE: 10/10 LOCATION: Left Elbow FINDINGS: Multiple view examination of the left elbow demonstrates no soft tissue swelling, joint effusion, or fracture. The osseous structures are in normal alignment. Bony mineralization is normal. CONCLUSION: 1. No acute findings left elbow radiograph. Jordan Doherty MD on October 14, 2017 at 13:00 Board Certified Radiologist. This report was verified electronically.
[2017-10-14 13:37] VITALS: BP 151/70; PULSE 72; RESP 18; O2SAT 96
[2017-10-14] MEDS ORDERED: LIDOCAINE HCL 1% PF 30 ML VIAL INFIL ONE (14:45)
[2017-10-14 14:51] LABS: AUTOMATED NEUTROPHIL # 8.5 TH/MM3 (1.8-7.7); BASOPHIL # 0.1 TH/MM3 (0-0.2); BASOPHIL % 0.2 % (0.0-2.0); HEMATOCRIT 35.3 % (35.0-46.0); LYMPH % 77.3 % (9.0-44.0); MEAN CELL VOLUME 101.4 FL (80.0-100.0); MEAN CORPUSCULAR HEMOGLOBIN 33.2 PG (27.0-34.0); MEAN CORPUSCULAR HGB CONC 32.7 % (32.0-36.0); NEUT % 20.5 % (16.0-70.0); PLATELET COUNT 188 TH/MM3 (150-450); RED BLOOD COUNT 3.48 MIL/MM3 (4.00-5.30); RED CELL DISTRIBUTION WIDTH 14.3 % (11.6-17.2); WHITE BLOOD COUNT 41.5 TH/MM3 (4.0-11.0)
[2017-10-14 15:01] LABS: APTT (PATIENT) 24.8 SEC (24.3-30.1); PROTHROMBIN TIME - PATIENT 10.6 SEC (9.8-11.6)
[2017-10-14 15:05] LABS: BICARBONATE 25.1 MEQ/L (21.0-32.0); HEMO FLAGS AUTO DIFF; POTASSIUM 3.3 MEQ/L (3.5-5.1)
--- NOTE | 2017-10-14 15:09 | RADRPT ---
EXAM DATE/TIME: 10/14/2017 14:49 [facility] COMPARISON: CT BRAIN W/O CONTRAST, July 27, 2017, 20:39. INDICATIONS : Fell and hit head. RADIATION DOSE: 31.94 CTDIvol (mGy) MEDICAL HISTORY : Cardiovascular disease. Chronic obstructive pulmonary disease. SURGICAL HISTORY : None. ENCOUNTER: Initial ACUITY: 1 day PAIN SCALE: 4/10 LOCATION: Left facial TECHNIQUE: Multiple contiguous axial images were obtained of the head. Using automated exposure control and adj ustment of the mA and/or kV according to patient size, radiation dose was kept as low as reasonably a chievable to obtain optimal diagnostic quality images. DICOM format image data is available electro nically for review and comparison. FINDINGS: CEREBRUM: Stable 1.8 cm calcified extra-axial mass in the left frontal mid to high convexities. The ventricles are normal for age. No evidence of midline shift, mass lesion, hemorrhage or acute infarction. No e xtra-axial fluid collections are seen. POSTERIOR FOSSA: The cerebellum and brainstem are intact. The 4th ventricle is midline. The cerebellopontine angle i s unremarkable. EXTRACRANIAL: The visualized portion of the orbits is intact. SKULL: The calvaria is intact. No evidence of skull fracture. CONCLUSION: 1. No acute intracranial abnormality. 2. Stable 1.8 cm calcified left frontal extra-axial mass consistent with meningioma. Davis Andrew MD on October 14, 2017 at 15:03 Board Certified Radiologist. This report was verified electronically.
--- NOTE | 2017-10-14 16:35 | RADRPT ---
EXAM DATE/TIME: 10/14/2017 16:15 [facility] COMPARISON: No previous studies available for comparison. INDICATIONS : Fall today. MEDICAL HISTORY : None. SURGICAL HISTORY : None. ENCOUNTER: Initial ACUITY: 1 day PAIN SCORE: 6/10 LOCATION: Left wrist FINDINGS: Two view examination of the left wrist was performed with overlying casting material. There again is a comminuted fracture of the distal radius with the carpal bones articulating with the more posterior fragment. The radial fracture is intra-articular with at least 4 mm of residual lucency. There is so me anterior angulation of the fracture. CONCLUSION: Comminuted radial fracture with extensive residual lucency and dorsal displacement of the distal radi al fragment and carpal bones. Chaitanya Puente MD on October 14, 2017 at 16:31 Board Certified Radiologist. This report was verified electronically.
--- NOTE | 2017-10-14 17:10 | PD ---
Data Data Last Documented VS Vital Signs Date Time Temp Pulse Resp B/P (MAP) Pulse Ox O2 Delivery O2 Flow Rate FiO2 10/14/17 13:37 72 18 151/70 (97) 96 Room Air Orders Orders Ct Brain W/O Iv Contrast(Rout) (10/14/17 ) Wrist, Complete ([id number]) (10/14/17 ) Elbow, Complete (4 Vws) (10/14/17 ) Iv Access Insert/Monitor (10/14/17 12:10) Morphine Inj (Morphine Inj) (10/14/17 12:15) Ondansetron Inj (Zofran Inj) (10/14/17 12:15) Morphine Inj (Morphine Inj) (10/14/17 13:45) Complete Blood Count With Diff (10/14/17 14:19) Basic Metabolic Panel (Bmp) (10/14/17 14:19) Coag Profile (10/14/17 14:19) Electrocardiogram (10/14/17 ) Lidocaine Pf 1% Inj (Xylocaine-Mpf 1% In (10/14/17 14:45) Splint Or Brace Apply/Monitor (10/14/17 14:40) Wrist, Limited (Ap&Lat) (10/14/17 ) Fiberglass Sugartong Sp Ad Arm (10/14/17 ) Sling Cradle Arm (10/14/17 ) Labs Laboratory Tests Test 10/14/17 14:29 White Blood Count 41.5 TH/MM3 Red Blood Count 3.48 MIL/MM3 Hemoglobin 11.5 GM/DL Hematocrit 35.3 % Mean Corpuscular Volume 101.4 FL Mean Corpuscular Hemoglobin 33.2 PG Mean Corpuscular Hemoglobin Concent 32.7 % Red Cell Distribution Width 14.3 % Platelet Count 188 TH/MM3 Mean Platelet Volume 9.4 FL Neutrophils (%) (Auto) 20.5 % Lymphocytes (%) (Auto) 77.3 % Monocytes (%) (Auto) 2.0 % Eosinophils (%) (Auto) 0.0 % Basophils (%) (Auto) 0.2 % Neutrophils # (Auto) 8.5 TH/MM3 Lymphocytes # (Auto) 32.0 TH/MM3 Monocytes # (Auto) 0.8 TH/MM3 Eosinophils # (Auto) 0.0 TH/MM3 Basophils # (Auto) 0.1 TH/MM3 CBC Comment AUTO DIFF Prothrombin Time 10.6 SEC Prothromb Time International Ratio 1.0 RATIO Activated Partial Thromboplast Time 24.8 SEC Blood Urea Nitrogen 29 MG/DL Creatinine 1.35 MG/DL Random Glucose 126 MG/DL Calcium Level 7.6 MG/DL Sodium Level 136 MEQ/L Potassium Level 3.3 MEQ/L Chloride Level 101 MEQ/L Carbon Dioxide Level 25.1 MEQ/L Anion Gap 10 MEQ/L Estimat Glomerular Filtration Rate 38 ML/MIN [facility] Supervised Visit with LUCILLE: Yes Narrative Course The history, exam, and medical decision-making in the associated midlevel provider note were completed with my assistance. I reviewed and agree with the findings presented. I attest that I had a [id number] encounter with the patient on the same day, and personally performed and documented my assessment and findings in the medical record. *My assessment and Findings: This is a 77 year old female who presents to the emergency department having had a mechanical fall. She has evidence of a distal radius fracture on x-ray. I performed a hematoma block at the bedside and the fracture was reduced but with splinting was found to be very lax and postreduction films were concerning. We will speak to Dr. Edwards for further plans for disposition. Procedures Procedure Narrative Hematoma block: 20 cc of 1% lidocaine were injected into the left distal radius fracture following aspiration of blood.. Patient tolerated the procedure well Reduction: Traction was used to reduce the left wrist fracture. Unfortunately post reduction films demonstrate failed reduction. Pt. has normal neurovascular exam. Slime Duffy MD Oct 14, 2017 17:10
[2017-10-14 17:23] LABS: NEUTROPHIL # MANUAL DIFF 6.6 TH/MM3 (1.8-7.7); POLYS (SEG NEUTROPHILS) 16 % (16-70); SCAN/DIFF FINAL DIFF MANUAL; SMUDGE CELLS PRESENT PRESENT; WBC DIFF SAMPLE 100
[2017-10-14 17:24] LABS: PLATELET ESTIMATE SMEAR NORMAL (NORMAL); PLATELET MORPHOLOGY NORMAL (NORMAL)
[2017-10-14] MEDS ORDERED: SODIUM CHLORIDE 0.9% FLUSH 10 ML FLUSH IV FLUSH PRN (17:45)
[2017-10-14] MEDS ORDERED: NALOXONE HCL 0.4 MG/ML AMP IV PUSH PRN (17:45)
[2017-10-14 18:11] VITALS: BP 140/63; PULSE 75; RESP 16; O2SAT 96
--- NOTE | 2017-10-14 19:23 | HHI.HP ---
HPI Service [facility] Primary Care Physician Unknown Admission Diagnosis L WRIST FX Diagnoses: Travel History International Travel<30 Days: No Contact w/Intl Traveler <30 Da: No Traveled to Known Affected Are: No History of Present Illness History from patient, daughter at the bedside, ER CURATOR communication, and review of medical records. today tried to get onto car and used right hand on steering wheel to balance lost balance due to lotion on wheel and tried to catch herslef and fell had colonoscopy yesterday had diarrhea ever since last admission - in jun 2017- had infected hernia, requiring antibiotics and wound vac for 2 weeks colonoscopy was just one poly removed ; found diverticula stool test was negative still needing to take immodium because of diarrhea 7-8 times a day pt is not aware of any treatment of cdiff did have some pain in lower abdomen no other symptoms Review of Systems Except as stated in HPI: all other systems reviewed are Neg Past Family Social History Past Medical History htn CLL COPD CHF- she thinks- she has had some echo done in [place], and states she is on lasix for it skin cancer of LLE- basal cell, resected Past Surgical History bilateral knee replaced infected hernia repair right ankle area basal cell ca resection sx for pancreatic lesion- not cancer- it was just exploratory surgery Allergies: Coded Allergies: No Known Allergies (Verified Allergy, Unknown, 10/14/17) Family History mother- CHF and passed and was a smoker dad- brain CA - used to work for [employer] brother- of cancer used to work at [employer] Social History quit smoking 1996 drink about 2 drinks - 3 drinks a day; mixed drink no drugs still driving lives on her own Physical Exam Vital Signs Vital Signs Date Time Temp Pulse Resp B/P (MAP) Pulse Ox O2 Delivery O2 Flow Rate FiO2 10/14/17 18:51 10/14/17 18:11 75 16 140/63 (88) 96 Room Air 10/14/17 13:37 72 18 151/70 (97) 96 Room Air 10/14/17 12:10 18 Room Air Physical Exam GENERAL: This is a well-nourished, well-developed patient, in no apparent distress. HEAD: Atraumatic. Normocephalic. No temporal or scalp tenderness. EYES: No scleral icterus. No injection or drainage. ENT: Nose without bleeding, purulent drainage or septal hematoma.. Airway patent. NECK: Trachea midline. No JVD CARDIOVASCULAR: Regular rate and rhythm without murmurs, gallops, or rubs. RESPIRATORY: Clear to auscultation. Breath sounds equal bilaterally. No wheezes , rales, or rhonchi. GASTROINTESTINAL: Abdomen soft, non-tender, nondistended. No guarding. MUSCULOSKELETAL: Extremities without clubbing, cyanosis, or edema. . No calf tenderness.LEFT UE in splint NEUROLOGICAL: Awake and alert.Motor and sensory grossly within normal limits apart from Limited ROM in left UE due to fracture. Normal speech. Laboratory Laboratory Tests Test 10/14/17 14:29 White Blood Count 41.5 Red Blood Count 3.48 Hemoglobin 11.5 Hematocrit 35.3 Mean Corpuscular Volume 101.4 Mean Corpuscular Hemoglobin 33.2 Mean Corpuscular Hemoglobin Concent 32.7 Red Cell Distribution Width 14.3 Platelet Count 188 Mean Platelet Volume 9.4 Neutrophils (%) (Auto) 20.5 Lymphocytes (%) (Auto) 77.3 Monocytes (%) (Auto) 2.0 Eosinophils (%) (Auto) 0.0 Basophils (%) (Auto) 0.2 Neutrophils # (Auto) 8.5 Lymphocytes # (Auto) 32.0 Monocytes # (Auto) 0.8 Eosinophils # (Auto) 0.0 Basophils # (Auto) 0.1 CBC Comment AUTO DIFF Differential Total Cells Counted 100 Neutrophils % (Manual) 16 Lymphocytes % 81 Monocytes % 3 Neutrophils # (Manual) 6.6 Differential Comment FINAL DIFF MANUAL Atypical Lymphocytes Smudge Cells PRESENT Platelet Estimate NORMAL Platelet Morphology Comment NORMAL Prothrombin Time 10.6 Prothromb Time International Ratio 1.0 Activated Partial Thromboplast Time 24.8 Blood Urea Nitrogen 29 Creatinine 1.35 Random Glucose 126 Calcium Level 7.6 Sodium Level 136 Potassium Level 3.3 Chloride Level 101 Carbon Dioxide Level 25.1 Anion Gap 10 Estimat Glomerular Filtration Rate 38 Result Diagram: 10/14/17 1429 10/14/17 1429 Imaging Last 48 hours Impressions Wrist X-Ray 10/14/17 0000 Signed Impressions: Service Date/Time: September 16:15 - CONCLUSION: Comminuted radial fracture with extensive residual lucency and dorsal displacement of the distal radial fragment and carpal bones. Chaitanya Puente MD Wrist X-Ray 10/14/17 0000 Signed Impressions: Service Date/Time: September 12:31 - CONCLUSION: 1. Intra-articular fracture distal radius with displacement. Jordan Doherty MD Head CT 10/14/17 0000 Signed Impressions: Service Date/Time: September 14:49 - CONCLUSION: 1. No acute intracranial abnormality. 2. Stable 1.8 cm calcified left frontal extra-axial mass consistent with meningioma. Davis Andrew MD Elbow X-Ray 10/14/17 0000 Signed Impressions: Service Date/Time: September 12:39 - CONCLUSION: 1. No acute findings left elbow radiograph. Jordan Doherty MD Caprini VTE Risk Assessment Caprini VTE Risk Assessment: Mod/High Risk (score >= 2) Caprini Risk Assessment Model Point Value = 1 Point Value = 2 Point Value = 3 Point Value = 5 Age 41-60 Minor surgery BMI > 25 kg/m2 Swollen legs Varicose veins or History of unexplained or recurrent spontaneous Oral contraceptives or hormone replacement Sepsis (< 1 month) Serious lung disease, including pneumonia (< 1 month) Abnormal pulmonary function Acute myocardial infarction Congestive heart failure (< 1 month) History of inflammatory bowel disease Medical patient at bed rest Age 61-74 Arthroscopic surgery Major open surgery (> 45 min) Laparoscopic surgery (> 45 min) Malignancy Confined to bed (> 72 hours) Immobilizing plaster cast Central venous access Age >= 75 History of VTE Family history of VTE Factor V Leiden Prothrombin [id number] Lupus anticoagulant Anticardiolipin antibodies Elevated serum homocysteine Heparin-induced thrombocytopenia Other congenital or acquired thrombophilia Stroke (< 1 month) Elective arthroplasty Hip, pelvis, or leg fracture Acute spinal cord injury (< 1 month) Prophylaxis Regimen Total Risk Factor Score Risk Level Prophylaxis Regimen 0-1 Low Early ambulation 2 Moderate Order ONE of the following: *Sequential Compression Device (SCD) *Heparin 5000 units SQ BID 3-4 Higher Order ONE of the following medications: *Heparin 5000 units SQ TID *Enoxaparin/Lovenox 40 mg SQ daily (WT < 150 kg, CrCl > 30 mL/min) *Enoxaparin/Lovenox 30 mg SQ daily (WT < 150 kg, CrCl > 10-29 mL/min) *Enoxaparin/Lovenox 30 mg SQ BID (WT < 150 kg, CrCl > 30 mL/min) AND/OR *Sequential Compression Device (SCD) 5 or more Highest Order ONE of the following medications: *Heparin 5000 units SQ TID (Preferred with Epidurals) *Enoxaparin/Lovenox 40 mg SQ daily (WT < 150 kg, CrCl > 30 mL/min) *Enoxaparin/Lovenox 30 mg SQ daily (WT < 150 kg, CrCl > 10-29 mL/min) *Enoxaparin/Lovenox 30 mg SQ BID (WT < 150 kg, CrCl > 30 mL/min) AND *Sequential Compression Device (SCD) Assessment and Plan Assessment and Plan Impression: Left distal radius fracture secondary to fall Diarrhea which is chronic since June 2017 post hernia surgery Recent colonoscopy yesterday at [facility]. Had one polypectomy. Leukocytosis secondary to CLL. No need of treatment so far. Following up with her oncologist as an outpatient for close monitoring. Hypokalemia. Patient is on Lasix therapy at home with potassium supplements. htn CLL COPD CHF- she thinks- she has had some echo done in [place], and states she is on lasix for it skin cancer of LLE- basal cell, resected Plan: Nothing by mouth past midnight. Replace potassium 40 mEq by mouth one dose now. We'll send stool for C. difficile. Continue Imodium if C. difficile is negative. Patient states she has been taking Imodium at home. She is unsure whether C. difficile was checked with the gastroenterology group. Pretty sure this was. However would repeat to make sure though. Chest x-ray tonight prior to OR. EKG prior to OR. Nebs when necessary. Resume home meds. DVT prophylaxis with Lovenox to start postoperatively. GI prophylaxis on pantoprazole. Discussed Condition With Patient, her daughter, nursing staff, ER CURATOR Physician Certification 2 Midnight Certification Type: Admission for Inpatient Services Order for Inpatient Services The services are ordered in accordance with Medicare regulations or non- Medicare payer requirements, as applicable. In the case of services not specified as inpatient-only, they are appropriately provided as inpatient services in accordance with the 2-midnight benchmark. Estimated LOS (days): 2 days is the estimated time the patient will need to remain in the hospital, assuming treatment plan goals are met and no additional complications. Post-Hospital Plan: Home Nia Love MD Oct 14, 2017 19:23
[2017-10-14] MEDS ORDERED: RESP: ALBUTEROL 2.5 MG/IPRATROPIUM 0.5 MG NEB (PRN) NEB (19:45)
[2017-10-14 20:00] VITALS: BP 127/64; PULSE 81; RESP 18; TEMP 98.8; O2SAT 95
[2017-10-14] MEDS ORDERED: PILL SPLITTER OTHER PRN (20:00)
[2017-10-14] MEDS ORDERED: POTASSIUM CHLORIDE 20 MEQ CONTROLLED RELEASE TAB PO ONE (20:15)
[2017-10-14] MEDS: GABAPENTIN 300 MG CAP PO SCH (20:43)
[2017-10-14] MEDS: METOPROLOL TARTRATE 50 MG TAB PO SCH (20:43)
[2017-10-14] MEDS: POTASSIUM CHLORIDE 10 MEQ CAP PO SCH (20:43)
[2017-10-14] MEDS: MONTELUKAST SODIUM 10 MG TAB PO SCH (20:43)
[2017-10-14] MEDS: MORPHINE SULFATE 2 MG/ML INJ IV PUSH PRN (20:58)
[2017-10-14] MEDS: SODIUM CHLORIDE 0.9% FLUSH 10 ML FLUSH IV FLUSH SCH (20:58)
[2017-10-14] MEDS: RESP: ALBUTEROL 2.5 MG/IPRATROPIUM 0.5 MG NEB (SCH) NEB (21:27)
[2017-10-14 21:28] VITALS: O2SAT 94
--- NOTE | 2017-10-14 21:32 | RADRPT ---
EXAM DATE/TIME: 10/14/2017 20:44 [facility] COMPARISON: CHEST SINGLE AP, July 09, 2017, 6:38. INDICATIONS : Evaluate for pneumonia, pneumothorax or communicable disease MEDICAL HISTORY : Hypertension. Cardiovascular disease. Chronic obstructive pulmonary disease SURGICAL HISTORY : None. ENCOUNTER: Initial ACUITY: 1 day PAIN SCORE: 0/10 LOCATION: Bilateral chest FINDINGS: A single view of the chest demonstrates the lungs to be symmetrically aerated without evidence of mas s, infiltrate or effusion. The cardiomediastinal contours are unremarkable. Osseous structures are intact. CONCLUSION: The lungs are clear. Hua Meehan MD on October 14, 2017 at 21:30 Board Certified Radiologist. This report was verified electronically.
[2017-10-14] MEDS: BUDESONIDE-FORMOTEROL 160/4.5 MCG INHALER INH SCH (22:51)
[2017-10-14] MEDS: MELATONIN 5 MG TAB PO SCH (22:51)
--- NOTE | 2017-10-14 23:38 | EKG ---
Date Performed: 10/14/2017 Time Performed: 18:07:04 PTAGE: 77 years EKG: Sinus rhythm WITH OCCASIONAL SUPRAVENTRICULAR PREMATURE COMPLEXES NONSPECIFIC T-WAVE ABNORMALITY BORDERLINE ECG PREVIOUS TRACING : 10/14/2017 18.06 Compared to prior tracing no significant change DOCTOR: Dewey Altman Interpretating Date/Time 10/14/2017 23:38:13
[2017-10-15] VITALS (7 sets, daily range): BP systolic 95–159; BP diastolic 46–67; PULSE 68–94; RESP 16–20; TEMP 96.1–96.6; O2SAT 92–96
[2017-10-15] MEDS: MORPHINE SULFATE 2 MG/ML INJ IV PUSH PRN ×2 (00:32→06:17)
[2017-10-15] MEDS: RESP: ALBUTEROL 2.5 MG/IPRATROPIUM 0.5 MG NEB (SCH) NEB ×4 (03:38→19:54)
[2017-10-15 05:32] LABS: C. DIFF EPI 027 PRESUMPTIVE NEGATIVE (NEGATIVE)
[2017-10-15 06:26] LABS: HEMATOCRIT 33.9 % (35.0-46.0); MEAN CELL VOLUME 102.4 FL (80.0-100.0); MEAN CORPUSCULAR HEMOGLOBIN 33.8 PG (27.0-34.0); PLATELET COUNT 158 TH/MM3 (150-450); RED BLOOD COUNT 3.31 MIL/MM3 (4.00-5.30); RED CELL DISTRIBUTION WIDTH 14.4 % (11.6-17.2); WHITE BLOOD COUNT 24.3 TH/MM3 (4.0-11.0)
[2017-10-15 06:30] LABS: HEMO FLAGS AUTO DIFF
[2017-10-15 06:49] LABS: BICARBONATE 24.4 MEQ/L (21.0-32.0); POTASSIUM 3.5 MEQ/L (3.5-5.1)
[2017-10-15] MEDS: METOPROLOL TARTRATE 50 MG TAB PO SCH ×2 (06:49→20:52)
[2017-10-15] MEDS ORDERED: NORC5TAB PO (06:56)
--- NOTE | 2017-10-15 07:04 | PD.ORT.PN ---
Subjective Subjective Remarks Patient with a history of leukemia. She to mechanical fall when trying to get into her car. Left distal radius fracture. No other associated injuries Objective Vitals Vital Signs Date Time Temp Pulse Resp B/P (MAP) Pulse Ox O2 Delivery O2 Flow Rate FiO2 10/15/17 04:00 96.3 68 16 95/46 (62) 94 10/15/17 03:44 94 Nasal Cannula 2.00 10/15/17 00:00 96.5 76 18 103/49 (67) 95 10/14/17 21:28 94 21 10/14/17 21:03 18 10/14/17 20:00 98.8 81 18 127/64 (85) 95 10/14/17 18:51 10/14/17 18:11 75 16 140/63 (88) 96 Room Air 10/14/17 13:37 72 18 151/70 (97) 96 Room Air 10/14/17 12:10 18 Room Air I/O 10/14/17 10/14/17 10/14/17 10/15/17 10/15/17 10/15/17 07:00 15:00 23:00 07:00 15:00 23:00 Intake Total 240 ml 0 ml Balance 240 ml 0 ml Intake Oral 240 ml 0 ml # Voids 1 3 # Bowel Movements 0 3 Result Diagram: 10/15/17 0519 10/15/17 0519 Other Results Laboratory Tests Test 10/14/17 14:29 Prothromb Time International Ratio 1.0 RATIO Prothrombin Time 10.6 SEC (9.8-11.6) Imaging Last 72 hours Impressions Wrist X-Ray 10/14/17 0000 Signed Impressions: Service Date/Time: September 16:15 - CONCLUSION: Comminuted radial fracture with extensive residual lucency and dorsal displacement of the distal radial fragment and carpal bones. Chaitanya Puente MD Wrist X-Ray 10/14/17 0000 Signed Impressions: Service Date/Time: September 12:31 - CONCLUSION: 1. Intra-articular fracture distal radius with displacement. Jordan Doherty MD Head CT 10/14/17 0000 Signed Impressions: Service Date/Time: September 14:49 - CONCLUSION: 1. No acute intracranial abnormality. 2. Stable 1.8 cm calcified left frontal extra-axial mass consistent with meningioma. Davis Andrew MD Elbow X-Ray 10/14/17 0000 Signed Impressions: Service Date/Time: September 12:39 - CONCLUSION: 1. No acute findings left elbow radiograph. Jordan Doherty MD Chest X-Ray 10/14/17 0000 Signed Impressions: Service Date/Time: September 20:44 - CONCLUSION: The lungs are clear. Hua Meehan MD Objective Remarks Left upper extremity: No pain with shoulder palpation or movement. Sugar tong splint place. Intact sensation distally in all fingers. Good capillary refills. Is able to fully extend and flex all fingers Assessment & Plan Assessment and Plan Left comminuted still radius fracture Maintain splint Nothing by mouth Sign consents for surgery this morning with Dr. Moreira for open reduction internal fixation of left wrist After surgery she will be discharged back to home when and is controlled. Potentially this afternoon She will maintain splint after surgery keep it clean and dry and will be nonweightbearing Follow-up with Dr. Moreira or PA in 2 weeks Krunal Wilson Jr. Oct 15, 2017 07:04
[2017-10-15 07:05] LABS: CALCIUM-PROTEIN CORRECTED 7.7 MG/DL (8.5-10.1)
[2017-10-15] MEDS ORDERED: GENTAMICIN SULFATE 80 MG/2 ML VIAL ONE (07:10)
[2017-10-15] MEDS ORDERED: VANCOMYCIN HCL 1000 MG VIAL ONE (07:34)
[2017-10-15] MEDS ORDERED: ceFAZolin INJ 1,000 MG VIAL IV ONE ×2 (08:43→12:00)
[2017-10-15] MEDS: CETIRIZINE HCL 10 MG TAB PO SCH (09:00)
[2017-10-15] MEDS ORDERED: BUPIVACAINE/EPINEPHRINE 0.25% PF 30 ML VIAL ONE (09:00)
[2017-10-15] MEDS: ASPIRIN EC 81 MG TABEC PO SCH (09:00)
--- NOTE | 2017-10-15 09:24 | PD.OP ---
cc: Jason Moreira MD Operative Report Date of Surgery: Oct 15, 2017 Preoperative Diagnosis: Comminuted intra-articular left distal radius fracture Postoperative Diagnosis: Procedure: Open reduction internal fixation left distal radius fracture Surgeon: Jason Moreira Back Pad Inspector(s): JANIYA Valencia PA-C The surgical procedure was assisted by my physician assistant administrator. My P.A. presence was necessary throughout this case for the manipulation and positioning of the surgical extremity. My P.A. was assisting me throughout the duration of this procedure. The skill set of a physician assistant administrator was medically necessary to complete this procedure. During the surgical case the rn neurosurgical was working at the back table and the physician assistant administrator was directly assisting me. Operation and Findings: Patient was seen and evaluated preoperatively and found to have a displaced distal radius fracture. Informed consent was obtained after detailed discussion of risk and benefits including bleeding, infection, injury to arteries, nerves, and blood vessels, weakness and numbness of hand, and tendon rupture. Informed consent was obtained. Patient received IV antibiotics prior to incision. Timeout procedure was performed. Operative extremity was prepped with alcohol followed by Hibiclens and draped usual sterile fashion. A standard volar approach to the distal radius was utilized. A 3 inch incision was made over the FCR tendon. Tendon sheath was opened. Pronator quadratus was elevated up. The fracture site was now visualized. The fracture did have intra-articular extension. The articular surface was in 3 main fragments. Traction was applied. The articular surface was reduced. Fracture fragments were manipulated to achieve excellent reduction. K wires were used to hold provisional fixation. Fluoroscopy confirmed appropriate alignment of fracture. A ITS variable angle distal radius plate was selected. Plate was provisionally fixed to bone with K wires. 2.7 and 2.4 cortical screws were used to compress plate to bone. Fluoroscopy confirmed appropriate alignment of fracture with well-placed hardware. Multiple 2.4 locking screws were now placed distally. Screws were predrilled and measured for appropriate length. 2 additional screws were placed into the shaft. K wires were removed. Final fluoroscopy revealed excellent of fracture with well-placed hardware. The wound was thoroughly irrigated with sterile saline. Subcutaneous tissue was closed with 3-0 Vicryl and skin was closed with 3-0 nylon. Sterile dressings were applied with Xeroform, 4 x 4, soft roll, and a well padded long arm splint. Patient was awakened and transferred to recovery room in stable condition Jason Moreira MD Oct 15, 2017 09:24
[2017-10-15] MEDS ORDERED: DO NOT ADM ANY ANTICOAGULANT DRUGS PRN (09:40)
[2017-10-15 09:44] LABS: NEUTROPHIL # MANUAL DIFF 5.6 TH/MM3 (1.8-7.7); POLYS (SEG NEUTROPHILS) 23 % (16-70); SMUDGE CELLS PRESENT PRESENT; WBC DIFF SAMPLE 100
[2017-10-15 09:46] LABS: PLATELET ESTIMATE SMEAR NORMAL (NORMAL); PLATELET MORPHOLOGY NORMAL (NORMAL); SCAN/DIFF FINAL DIFF MANUAL
[2017-10-15 09:47] LABS: OVALOCYTES 1+ (NORMAL)
[2017-10-15] MEDS ORDERED: *morphine SULFATE 8 MG/ML PERIprocedure ONLY ONE ×2 (09:48→10:00)
[2017-10-15] MEDS ORDERED: *RESP: ALBUTEROL 2.5 MG/3 ML NEB (PRN) PERIprocedural Use ONLY NEB ONE (09:51)
[2017-10-15] MEDS ORDERED: fentaNYL CITRATE 1000 MCG/20 ML VIAL ONE (09:53)
[2017-10-15] MEDS ORDERED: MORPHINE SULFATE 4 MG/ML INJ IV PUSH PRN (10:00)
[2017-10-15] MEDS: BUDESONIDE-FORMOTEROL 160/4.5 MCG INHALER INH SCH ×2 (11:51→20:55)
[2017-10-15] MEDS: SODIUM CHLORIDE 0.9% FLUSH 10 ML FLUSH IV FLUSH SCH ×2 (11:51→20:56)
[2017-10-15] MEDS: DULoxetine HCl DR 60 MG CAP PO SCH (11:52)
[2017-10-15] MEDS: GABAPENTIN 300 MG CAP PO SCH ×2 (11:52→20:53)
[2017-10-15] MEDS: POTASSIUM CHLORIDE 10 MEQ CAP PO SCH ×2 (11:52→20:53)
[2017-10-15] MEDS: PANTOPRAZOLE SOD 20 MG DELAYED RELEASE TAB PO SCH (11:52)
[2017-10-15] MEDS: ESCITALOPRAM OXALATE 10 MG TAB PO SCH (11:52)
[2017-10-15] MEDS: FUROSEMIDE 40 MG TAB PO SCH (11:53)
[2017-10-15] MEDS ORDERED: PROPOFOL 200 MG/20 ML AMP IV ONE (12:00)
[2017-10-15] MEDS ORDERED: ePHEDrine/NS 25 MG/5 ML SYRINGE IV ONE (12:00)
[2017-10-15] MEDS ORDERED: LIDOCAINE HCL 1% PF 5 ML SYRINGE OTHER ONE (12:00)
[2017-10-15] MEDS ORDERED: DEXAMETHASONE SOD PHOS 4 MG/ML VIAL IV ONE (12:00)
[2017-10-15] MEDS ORDERED: ONDANSETRON HCL 4 MG/2 ML VIAL IV ONE (12:00)
--- NOTE | 2017-10-15 12:51 | RADRPT ---
EXAM DATE/TIME: 10/15/2017 09:00 [facility] COMPARISON: WRIST LEFT LIMITED (AP & LAT), October 14, 2017, 16:15. INDICATIONS : Left wrist fracture- ORIF done in OR. MEDICAL HISTORY : None. SURGICAL HISTORY : None. ENCOUNTER: Initial ACUITY: 1 day PAIN SCORE: Non-responsive. LOCATION: Left Wrist. FINDINGS: Two view examination of the left wrist demonstrates plate and screw fixation of the distal radius. Ov erlying soft tissue swelling. CONCLUSION: 1. Plate and screw fixation distal radius with overlying soft tissue swelling. Jordan Doherty MD on October 15, 2017 at 12:48 Board Certified Radiologist. This report was verified electronically.
--- NOTE | 2017-10-15 14:49 | ECHRPT ---
Indication: Heart failure, unspecified CONCLUSIONS Normal left ventricular size and wall thickness. The left ventricular systolic function is normal wi th an estimated ejection fraction in the range of 60-65%. Left ventricular diastolic function parameters a re normal. There is mild tricuspid valve regurgitation. There is estimated mild pulmonary hypertension present (range 43 mmHg). BP: 95 / 46 HR: 68 Rhythm: MEASUREMENTS (Male / Female) Normal Values Technical Quality:Good 2D ECHO LV Diastolic Diameter PLAX 3.6 cm 4.2 - 5.9 / 3.9 - 5.3 cm LV Systolic Diameter PLAX 2.5 cm IVS Diastolic Thickness 1.1 cm 0.6 - 1.0 / 0.6 - 0.9 cm LVPW Diastolic Thickness 1.1 cm 0.6 - 1.0 / 0.6 - 0.9 cm LV Relative Wall Thickness 0.6 RV Internal Dim ED PLAX 2.3 cm M-MODE Aortic Root Diameter MM 2.9 cm LA Systolic Diameter MM 4.4 cm LA Ao Ratio MM 1.5 AV Cusp Separation MM 1.3 cm DOPPLER Mitral E Point Velocity 102.0 cm/s Mitral A Point Velocity 121.0 cm/s Mitral E to A Ratio 0.8 LV E' Lateral Velocity 10.5 cm/s Mitral E to LV E' Lateral Ratio 9.7 TR Peak Velocity 288.0 cm/s TR Peak Gradient 33.2 mmHg Right Atrial Pressure 10.0 mmHg Pulmonary Artery Systolic Pressu 43.2 mmHg Right Ventricular Systolic Press 43.2 mmHg FINDINGS LEFT VENTRICLE Normal left ventricular size and wall thickness. The left ventricular systolic function is normal wi th an estimated ejection fraction in the range of 60-65%. Left ventricular diastolic function parameters a re normal. RIGHT VENTRICLE Normal right ventricular size and systolic function. LEFT ATRIUM The left atrial size is upper limits of normal. RIGHT ATRIUM The right atrial size is normal. ATRIAL SEPTUM Normal atrial septal thickness without atrial level shunting by limited color doppler interrogation. AORTA The aortic root and proximal ascending aorta are not well visualized. MITRAL VALVE Structurally normal mitral valve. No mitral valve stenosis or regurgitation AORTIC VALVE Trileaflet aortic valve. No aortic valve stenosis or regurgitation. TRICUSPID VALVE There is mild tricuspid valve regurgitation. There is estimated mild pulmonary hypertension present (range 43 mmHg). PULMONARY VALVE The pulmonary valve is not well visualized. No pulmonary valve regurgitation. VESSELS There is less than 50% respiratory change in dimension of the inferior vena cava (abnormal). PERICARDIUM No pericardial effusion. Lashon Pardo MD, FACC (Electronically Signed) Final Date:15 October 2017 14:48
--- NOTE | 2017-10-15 14:54 | MB ---
cc: SO SERRATO TWETHIDA MD DATE OF CONSULTATION: 10/15/2017 REASON FOR CONSULTATION. Comminuted left distal radius fracture. CONSULTING PHYSICIAN Dr. Hanson. HISTORY Jesi is a 77-year-old female who was getting into a car. She lost her balance and fell. She landed on her outstretched left wrist. She had immediate left wrist pain she presented emergency room where x-rays revealed a displaced left distal radius fracture. She is currently awake and alert on the orthopedic floor. She does have a history of recent infected hernia and has had a recent colonoscopy. Currently her only complaint is her left wrist. Pain is worse with movement. PAST MEDICAL HISTORY/ILLNESSES 1. Hypertension. 2. Chronic leukocytic leukemia 3. Chronic obstructive pulmonary disease. 4. Congestive heart failure. 5. Basal cell cancer. SURGERIES Bilateral knee replacement Infected hernia repair. Skin cancer resection ALLERGIES None. MEDICATIONS Please see EMR for complete list of inpatient medications. This was reviewed. FAMILY HISTORY: Family history is positive for congestive heart failure in her mother. Brain cancer in her father and cancer in her brother. SOCIAL HISTORY The patient quit smoking in 1996. She drinks approximately two drinks a day. She denies drug use. She lives on her own independently. REVIEW OF SYSTEMS The patient denies headache, visual changes, neck pain, chest pain, shortness of breath, abdominal pain, nausea, vomiting or recent weight loss or numbness and tingling of the extremities. She had diarrhea for approximately a week, she complains of left wrist pain. PHYSICAL EXAMINATION IN GENERAL: The patient is a well-developed, well-nourished 77-year female in no acute distress. She is awake and alert. She is alert and x3. VITAL SIGNS: Vital signs: Temperature 96.3, pulse 68, respirations 16, blood pressure 95/46, O2 sat 94% 2 liters nasal cannula. HEAD, EYES, EARS, NOSE, AND THROAT: Head: The patient is normocephalic. Pupils are equal. NECK: Soft, nontender. Trachea is midline. EXTREMITIES: Examination of left arm reveals no pain around her shoulder or elbow. She is diffusely tender around the wrist. She has mild swelling of the wrist. There is some visible deformity of the wrist. The skin is intact. She has intact sensation in all fingers. Examination of right arm reveals no pain with shoulder, elbow or wrist motion. She has intact sensation in all fingers. She has good cap refill fingers. Diamond Die Driller strength is +5. Examination of bilateral lower extremities reveals no significant pain with hip, knee or ankle motion. Skin is intact. Dorsalis pedis pulse are palpable. Sensation is intact to both feet. X-RAYS X-rays of left wrist reviewed. The patient has a displaced intra-articular distal radius fracture. IMPRESSION Displaced left distal radius intra-articular fracture. PLAN Treatment options were discussed with the patient at this point I would recommend open reduction internal fixation of left distal radius with possible external fixation. Risks of surgery include bleeding, infection, injury to blood vessels, nonunion, malunion, painful hardware as well as medical complications including blood clot, stroke, heart attack and . All questions were answered. I will plan on surgery today. A mid-level provider in my office (nurse practitioner or physician pharmacy assistant) may see this patient on follow-up visits and continue to implement the objectives of this plan including: Starting or adjusting medications, injections , cast application, orthotics, brace application, physical therapy, radiological studies (including x-ray, MRI, CT, ultrasound, bone scan), vascular studies, neurologic studies, specialist consultation, and proceeding with surgical management, as appropriate. MD LIYA Rg/donavan /7:27 AM /2:23 PM SAMUEL
--- NOTE | 2017-10-15 16:15 | HHI.PR ---
Subjective Remarks The patient said that her pain was well-controlled. She said she could use a few breathing treatments. She was looking forward to going home. Her family was at the bedside. Discussed with nursing. Objective Vitals Vital Signs Date Time Temp Pulse Resp B/P (MAP) Pulse Ox O2 Delivery O2 Flow Rate FiO2 10/15/17 12:00 96.1 84 16 114/58 (76) 94 10/15/17 10:30 97.8 75 14 108/58 (75) 94 Nasal Cannula 2 10/15/17 10:15 72 16 103/53 (70) 95 Nasal Cannula 2 10/15/17 10:00 66 20 120/58 (78) 99 Aerosol Mask 10/15/17 09:45 72 18 129/60 (83) 94 Nasal Cannula 2 10/15/17 09:40 97.8 80 14 122/56 (78) 90 Room Air 2 Nasal Cannula 10/15/17 04:00 96.3 68 16 95/46 (62) 94 10/15/17 03:44 94 Nasal Cannula 2.00 10/15/17 00:00 96.5 76 18 103/49 (67) 95 10/14/17 21:28 94 21 10/14/17 21:03 18 10/14/17 20:00 98.8 81 18 127/64 (85) 95 10/14/17 18:51 10/14/17 18:11 75 16 140/63 (88) 96 Room Air I/O 10/14/17 10/14/17 10/14/17 10/15/17 10/15/17 10/15/17 07:00 15:00 23:00 07:00 15:00 23:00 Intake Total 240 ml 0 ml 1000 ml Output Total 20 ml Balance 240 ml 0 ml 980 ml Intake Oral 240 ml 0 ml Other 1000 ml Output Estimated Blood Loss 20 ml # Voids 1 3 # Bowel Movements 0 3 Result Diagram: 10/15/17 0519 10/15/17 0519 Imaging Last Impressions Wrist X-Ray 10/15/17 0000 Signed Impressions: Service Date/Time: Sunday, October 15, 2017 09:00 - CONCLUSION: 1. Plate and screw fixation distal radius with overlying soft tissue swelling. Jordan Doherty MD Head CT 10/14/17 0000 Signed Impressions: Service Date/Time: September 14:49 - CONCLUSION: 1. No acute intracranial abnormality. 2. Stable 1.8 cm calcified left frontal extra-axial mass consistent with meningioma. Davis Andrew MD Elbow X-Ray 10/14/17 0000 Signed Impressions: Service Date/Time: September 12:39 - CONCLUSION: 1. No acute findings left elbow radiograph. Jordan Doherty MD Chest X-Ray 10/14/17 0000 Signed Impressions: Service Date/Time: September 20:44 - CONCLUSION: The lungs are clear. Hua Meehan MD Objective Remarks GENERAL: This is a well-nourished, well-developed patient, in no apparent distress. HEAD: Atraumatic. Normocephalic. No temporal or scalp tenderness. EYES: No scleral icterus. No injection or drainage. ENT: Nose without bleeding, purulent drainage or septal hematoma.. Airway patent. NECK: Trachea midline. No JVD CARDIOVASCULAR: Regular rate and rhythm without murmurs, gallops, or rubs. RESPIRATORY: Mild wheezing appreciated. GASTROINTESTINAL: Abdomen soft, non-tender, nondistended. No guarding. MUSCULOSKELETAL: Extremities without clubbing, cyanosis, or edema. . No calf tenderness. LEFT UE in splint NEUROLOGICAL: Awake and alert.Motor and sensory grossly within normal limits apart from Limited ROM in left UE due to fracture. Normal speech. PSYCH: Mood and affect appropriate. Medications and IVs Current Medications Medications (Trade) Dose Ordered Sig/Dayron Route Start Time Stop Time Status Last Admin (NS Flush) 2 ml UNSCH PRN IV FLUSH 10/14/17 17:45 10/15/17 06:17 (NS Flush) 2 ml BID IV FLUSH 10/14/17 21:00 10/15/17 11:51 (Narcan Inj) 0.4 mg UNSCH PRN IV PUSH 10/14/17 17:45 (Morphine Inj) 2 mg Q3H PRN IV PUSH 10/14/17 17:45 10/15/17 06:17 (Duoneb Neb) 1 ampule Q6HR NEB NEB 10/14/17 22:00 10/15/17 03:38 (Duoneb Neb) 1 ampule Q2HR NEB PRN NEB 10/14/17 19:45 (Ecotrin Ec) 81 mg DAILY PO 10/15/17 09:00 (Symbicort 160-4.5 Mcg Inh) 2 puff Q12HR INH 10/14/17 21:00 10/15/17 11:51 (ZyrTEC) 10 mg DAILY PO 10/15/17 09:00 (Cymbalta Dr) 60 mg DAILY PO 10/15/17 09:00 10/15/17 11:52 (Lexapro) 5 mg DAILY PO 10/15/17 09:00 10/15/17 11:52 (Lasix) 40 mg DAILY PO 10/15/17 09:00 10/15/17 11:53 (Neurontin) 300 mg BID PO 10/14/17 21:00 10/15/17 11:52 (Melatonin) 5 mg HS PO 10/14/17 21:00 10/14/17 22:51 (Lopressor) 50 mg BID PO 10/14/17 21:00 10/15/17 06:49 (Singulair) 10 mg HS PO 10/14/17 21:00 10/14/17 20:43 (KCl) 10 meq BID PO 10/14/17 21:00 10/15/17 11:52 (Protonix) 20 mg DAILY PO 10/15/17 09:00 10/15/17 11:52 (Pill Splitter) 1 ea UNSCH PRN OTHER 10/14/17 20:00 ([place] 7.5-325 Mg) 1 tab Q3H PRN PO 10/15/17 09:30 (Morphine Inj) 3 mg Q3H PRN IV PUSH 10/15/17 10:00 Miscellaneous Information ALL NURSING DEPARTME... UNSCH PRN .XX 10/15/17 09:40 10/16/17 09:39 Calcium Gluconate 1 gm/Sodium Chloride 110 ml @ 110 mls/hr ONCE ONCE IV 10/15/17 17:00 10/15/17 17:59 A/P Assessment and Plan Left distal radius fracture Secondary to fall. S/p surgical repair by ortho. - pain meds, weightbearing, wound care and anticoagulation per ortho. - IS. - PT. Leukocytosis Secondary to CLL. - No need of treatment so far. Following up with her oncologist as an outpatient for close monitoring. Hypokalemia Patient is on Lasix therapy at home with potassium supplements. Also exacerbated by diarrhea. - monitor and replete. - hold Lasix. Chronic diarrhea C diff negative. Recently had a colonoscopy done. - Continue Imodium as needed. - outpt GI follow-up. Dyspnea Echo with normal EF. Chest x-ray unremarkable. Likely s/t COPD. - oxygen as needed. - Nebs when necessary. - consider AM walk test. DVT prophylaxis with Lovenox to start postoperatively. GI prophylaxis on pantoprazole. Discharge Planning Hopefully d/c home in AM Krunal Maynard DO Oct 15, 2017 16:15
[2017-10-15] MEDS ORDERED: CALCIUM GLUCONATE INJ 1 GM in SODIUM CHLORIDE 0.9% INJ 100 ML IV ONE (17:00)
[2017-10-15] MEDS: ACETAMINOPHEN/HYDROcodone 325 MG/7.5 MG TAB PO PRN (18:45)
[2017-10-15] MEDS: MONTELUKAST SODIUM 10 MG TAB PO SCH (20:52)
[2017-10-15] MEDS: MELATONIN 5 MG TAB PO SCH (20:53)
[2017-10-16] VITALS: BP 105/52; PULSE 90; RESP 18; TEMP 96.3; O2SAT 95
[2017-10-16 04:00] VITALS: BP 103/58; PULSE 77; RESP 20; TEMP 96; O2SAT 99
[2017-10-16] MEDS: ACETAMINOPHEN/HYDROcodone 325 MG/7.5 MG TAB PO PRN (04:42)
[2017-10-16] MEDS: RESP: ALBUTEROL 2.5 MG/IPRATROPIUM 0.5 MG NEB (SCH) NEB ×2 (05:18→08:55)
[2017-10-16 06:44] LABS: HEMATOCRIT 30.4 % (35.0-46.0); MEAN CELL VOLUME 102.1 FL (80.0-100.0); MEAN CORPUSCULAR HGB CONC 33.3 % (32.0-36.0); PLATELET COUNT 155 TH/MM3 (150-450); RED BLOOD COUNT 2.98 MIL/MM3 (4.00-5.30); RED CELL DISTRIBUTION WIDTH 14.3 % (11.6-17.2); REVIEW FLAG FINAL; WHITE BLOOD COUNT 22.7 TH/MM3 (4.0-11.0)
[2017-10-16 07:10] LABS: BICARBONATE 25.8 MEQ/L (21.0-32.0); MAGNESIUM 1.4 MG/DL (1.5-2.5); POTASSIUM 3.7 MEQ/L (3.5-5.1)
[2017-10-16 08:00] VITALS: BP 103/55; PULSE 83; RESP 17; TEMP 97.4; O2SAT 95
[2017-10-16] MEDS: BUDESONIDE-FORMOTEROL 160/4.5 MCG INHALER INH SCH (08:39)
[2017-10-16] MEDS: PANTOPRAZOLE SOD 20 MG DELAYED RELEASE TAB PO SCH (08:40)
[2017-10-16] MEDS: ESCITALOPRAM OXALATE 10 MG TAB PO SCH (08:40)
[2017-10-16] MEDS: CETIRIZINE HCL 10 MG TAB PO SCH (08:41)
[2017-10-16] MEDS: POTASSIUM CHLORIDE 10 MEQ CAP PO SCH (08:41)
[2017-10-16] MEDS: GABAPENTIN 300 MG CAP PO SCH (08:41)
[2017-10-16] MEDS: METOPROLOL TARTRATE 50 MG TAB PO SCH (08:41)
[2017-10-16] MEDS: DULoxetine HCl DR 60 MG CAP PO SCH (08:41)
[2017-10-16] MEDS: SODIUM CHLORIDE 0.9% FLUSH 10 ML FLUSH IV FLUSH SCH (08:42)
[2017-10-16] MEDS: FUROSEMIDE 40 MG TAB PO SCH (08:42)
[2017-10-16] MEDS: ASPIRIN EC 81 MG TABEC PO SCH (08:42)
[2017-10-16 08:57] VITALS: O2SAT 96
[2017-10-16] MEDS ORDERED: CALCIUM GLUCONATE INJ 1 GM in SODIUM CHLORIDE 0.9% INJ 100 ML IV ONE (09:30)
[2017-10-16] MEDS ORDERED: ALBUAER3 INH (09:33)
--- NOTE | 2017-10-16 09:34 | HHI.DCPOC ---
Discharge Care Plan Diagnosis: (1) Wrist fracture, left (2) COPD (chronic obstructive pulmonary disease) Goals to Promote Your Health * To prevent worsening of your condition and complications * To maintain your health at the optimal level Directions to Meet Your Goals Take your medications as prescribed Follow your dietary instruction Follow activity as directed Keep your appointments as scheduled Take your immunizations and boosters as scheduled If your symptoms worsen call your PCP, if no PCP go to Urgent Care Center or Emergency Room Smoking is Dangerous to Your Health. Avoid second hand smoke Call the 24-hour hour crisis hotline for domestic abuse at Krunal Maynard DO Oct 16, 2017 09:34
--- NOTE | 2017-10-16 09:38 | HHI.PR ---
Subjective Remarks The pt was anxious to go home. She said she was feeling well and pain was controlled. She said she has been off of oxygen and breathing well. She said her diarrhea has improved. Her family was at the bedside. Discussed with nursing. Objective Vitals Vital Signs Date Time Temp Pulse Resp B/P (MAP) Pulse Ox O2 Delivery O2 Flow Rate FiO2 10/16/17 08:57 96 Nasal Cannula 2.00 10/16/17 04:00 96.0 77 20 103/58 (73) 99 10/16/17 00:00 96.3 90 18 105/52 (69) 95 10/15/17 20:00 96.5 94 20 150/64 (92) 92 10/15/17 19:45 16 10/15/17 19:39 96 Nasal Cannula 2.00 10/15/17 16:00 96.6 87 18 159/67 (97) 95 10/15/17 12:00 96.1 84 16 114/58 (76) 94 10/15/17 10:30 97.8 75 14 108/58 (75) 94 Nasal Cannula 2 10/15/17 10:15 72 16 103/53 (70) 95 Nasal Cannula 2 10/15/17 10:00 66 20 120/58 (78) 99 Aerosol Mask 10/15/17 09:45 72 18 129/60 (83) 94 Nasal Cannula 2 10/15/17 09:40 97.8 80 14 122/56 (78) 90 Room Air 2 Nasal Cannula I/O 10/15/17 10/15/17 10/15/17 10/16/17 10/16/17 10/16/17 07:00 15:00 23:00 07:00 15:00 23:00 Intake Total 0 ml 1000 ml 240 ml Output Total 20 ml Balance 0 ml 980 ml 240 ml Intake Oral 0 ml 240 ml Other 1000 ml Output Estimated Blood Loss 20 ml # Voids 3 2 2 # Bowel Movements 3 0 Result Diagram: 10/16/1718 10/16/17617 Imaging Last Impressions Wrist X-Ray 10/15/17 0000 Signed Impressions: Service Date/Time: Sunday, October 15, 2017 09:00 - CONCLUSION: 1. Plate and screw fixation distal radius with overlying soft tissue swelling. Jordan Doherty MD Head CT 10/14/17 0000 Signed Impressions: Service Date/Time: September 14:49 - CONCLUSION: 1. No acute intracranial abnormality. 2. Stable 1.8 cm calcified left frontal extra-axial mass consistent with meningioma. Davis Andrew MD Elbow X-Ray 10/14/17 0000 Signed Impressions: Service Date/Time: September 12:39 - CONCLUSION: 1. No acute findings left elbow radiograph. Jordan Doherty MD Chest X-Ray 10/14/17 0000 Signed Impressions: Service Date/Time: September 20:44 - CONCLUSION: The lungs are clear. Hua Meehan MD Objective Remarks GENERAL: This is a well-nourished, well-developed patient, in no apparent distress. HEAD: Atraumatic. Normocephalic. No temporal or scalp tenderness. EYES: No scleral icterus. No injection or drainage. ENT: Nose without bleeding, purulent drainage or septal hematoma.. Airway patent. NECK: Trachea midline. No JVD CARDIOVASCULAR: Regular rate and rhythm without murmurs, gallops, or rubs. RESPIRATORY: Mild wheezing and rhonchi appreciated. GASTROINTESTINAL: Abdomen soft, non-tender, nondistended. No guarding. MUSCULOSKELETAL: Extremities without clubbing, cyanosis, or edema. . No calf tenderness. LEFT UE in splint NEUROLOGICAL: Awake and alert.Motor and sensory grossly within normal limits apart from Limited ROM in left UE due to fracture. Normal speech. PSYCH: Mood and affect appropriate. Procedures Plate and screw fixation distal radius Medications and IVs Current Medications Medications (Trade) Dose Ordered Sig/Dayron Route Start Time Stop Time Status Last Admin (NS Flush) 2 ml UNSCH PRN IV FLUSH 10/14/17 17:45 10/15/17 06:17 (NS Flush) 2 ml BID IV FLUSH 10/14/17 21:00 10/16/17 08:42 (Narcan Inj) 0.4 mg UNSCH PRN IV PUSH 10/14/17 17:45 (Morphine Inj) 2 mg Q3H PRN IV PUSH 10/14/17 17:45 10/15/17 06:17 (Duoneb Neb) 1 ampule Q6HR NEB NEB 10/14/17 22:00 10/16/17 08:55 (Duoneb Neb) 1 ampule Q2HR NEB PRN NEB 10/14/17 19:45 (Ecotrin Ec) 81 mg DAILY PO 10/15/17 09:00 (Symbicort 160-4.5 Mcg Inh) 2 puff Q12HR INH 10/14/17 21:00 10/16/17 08:39 (ZyrTEC) 10 mg DAILY PO 10/15/17 09:00 10/16/17 08:41 (Cymbalta Dr) 60 mg DAILY PO 10/15/17 09:00 10/16/17 08:41 (Lexapro) 5 mg DAILY PO 10/15/17 09:00 10/16/17 08:40 (Lasix) 40 mg DAILY PO 10/15/17 09:00 10/16/17 08:42 (Neurontin) 300 mg BID PO 10/14/17 21:00 10/16/17 08:41 (Melatonin) 5 mg HS PO 10/14/17 21:00 10/15/17 20:53 (Lopressor) 50 mg BID PO 10/14/17 21:00 10/16/17 08:41 (Singulair) 10 mg HS PO 10/14/17 21:00 10/15/17 20:52 (KCl) 10 meq BID PO 10/14/17 21:00 10/16/17 08:41 (Protonix) 20 mg DAILY PO 10/15/17 09:00 10/16/17 08:40 (Pill Splitter) 1 ea UNSCH PRN OTHER 10/14/17 20:00 ([place] 7.5-325 Mg) 1 tab Q3H PRN PO 10/15/17 09:30 10/16/17 04:42 (Morphine Inj) 3 mg Q3H PRN IV PUSH 10/15/17 10:00 Miscellaneous Information ALL NURSING DEPARTME... UNSCH PRN .XX 10/15/17 09:40 10/16/17 09:39 Magnesium Sulfate/ Dextrose 100 ml @ 100 mls/hr Q1H IV 10/16/17 09:30 10/16/17 11:29 UNV Calcium Gluconate 1 gm/Sodium Chloride 110 ml @ 110 mls/hr ONCE ONCE IV 10/16/17 09:30 10/16/17 10:29 UNV A/P Assessment and Plan Left distal radius fracture Secondary to fall. S/p surgical repair by ortho. Pain controlled. - pain meds, weightbearing, wound care and anticoagulation per ortho. - IS. - PT. - outpt follow-up with orthopedics. Leukocytosis Secondary to CLL. - No need of treatment so far. Following up with her oncologist as an outpatient for close monitoring. Hypokalemia/ Hypomagnesemia/ Hypocalcemia Patient is on Lasix therapy at home with potassium supplements. Also exacerbated by diarrhea. - monitor and replete. - hold Lasix. Chronic diarrhea C diff negative. Recently had a colonoscopy done. - Continue Imodium as needed. - outpt GI follow-up. Dyspnea Echo with normal EF. Chest x-ray unremarkable. Likely s/t COPD. - oxygen as needed. - Nebs when necessary. - Proair upon discharge. DVT prophylaxis with Lovenox to start postoperatively. GI prophylaxis on pantoprazole. Discharge Planning D/c home Krunal Maynard DO Oct 16, 2017 09:38
[2017-10-16] MEDS: MAGNESIUM SULFATE 1 GM PREMIX 100 ML IV SCH ×2 (09:56→11:21)
== END 2017-10-16 13:37 | disposition home or self-care (01) | DRG 511 ==
LOC: NEPD 11:43 → NEDA 17:32 → N06A 18:53
PROVIDERS: ADMIT Hospitalist; ATTEND Hospitalist
PROC: 0PSJ04Z Reposition Left Radius with Internal Fixation Device, Open Approach (ICD-10-PCS; principal; 2017-10-15 08:03)
DX: S52.572A Other intraarticular fracture of lower end of left radius, initial encounter for closed fracture (principal); C91.10 Chronic lymphocytic leukemia of B-cell type not having achieved remission; I11.0 Hypertensive heart disease with heart failure; I50.9 Heart failure, unspecified; J44.9 Chronic obstructive pulmonary disease, unspecified; W01.0XXA Fall on same level from slipping, tripping and stumbling without subsequent striking against object, initial encounter; Z96.653 Presence of artificial knee joint, bilateral; E87.6 Hypokalemia; R19.7 Diarrhea, unspecified; E83.42 Hypomagnesemia; E83.51 Hypocalcemia; K21.9 Gastro-esophageal reflux disease without esophagitis; F32.9 Major depressive disorder, single episode, unspecified; F41.9 Anxiety disorder, unspecified; M19.90 Unspecified osteoarthritis, unspecified site; Z85.828 Personal history of other malignant neoplasm of skin; Z87.891 Personal history of nicotine dependence
CPT/HCPCS: 25605; 70450; 71010; 73080; 73100; 73110; 76000; 80048; 83735; 84155; 85007; 85027; 85610; 85730; 87493; 93005; 93306; 94150; 94640; 94664; 96374; 96375; 96376; J0610; J0690; J1100; J1580; J2270; J2405; J3010; J3370; J3475; J7613